=== PATIENT | female | born 1955 | race Caucasian/White ===

== ENCOUNTER 2019-12-15 12:21 | Inpatient (IN) | payer MEDICARE, OTHER ==
[~2019-12-15] VITALS: Ht 165.1 cm; Wt 36.8 kg
[2019-12-15] VITALS (7 sets, daily range): BP systolic 73–89; BP diastolic 46–60
[2019-12-15] MEDS ORDERED: ETOMIDATE 2 MG/ML 10 ML INJ IV ONE (12:31)
[2019-12-15] MEDS ORDERED: VECURONIUM BROMIDE FOR INJ 20 MG VIAL ONE (12:31)
[2019-12-15] MEDS ORDERED: WATER STERILE 10 ML VIAL ONE (12:31)
--- NOTE | 2019-12-15 13:04 | NUR ---
1304 - ETOMIDATE 20MG AND VECURONIUM 10MG IVP 1310 - 6.5 ET TUBE PLACED AT MONA 25 TO THE LIPS
[2019-12-15] MEDS ORDERED: ETOMIDATE 2 MG/ML 10 ML INJ IV STA (13:16)
[2019-12-15] MEDS ORDERED: VECURONIUM BROMIDE FOR INJ 20 MG VIAL IV STA (13:16)
[2019-12-15] MEDS ORDERED: VANCOMYCIN 1GM/NS 250 ML 250 ML IV STA (13:23)
[2019-12-15] MEDS ORDERED: CEFEPIME HCL 1 GM VIAL IV STA (13:23)
[2019-12-15] MEDS ORDERED: AZITHROMYCIN 500MG/NS 250 ML 250 ML IV STA (13:23)
[2019-12-15 13:30] LABS: BASOPHILS # (AUTO) 0.1 (0.0-0.1); BASOPHILS % 0.4 % (0.0-1.0); EOSINOPHILS % 0.2 % (0.0-6.0); HEMATOCRIT 45.5 % (34.2-44.1); LYMPHOCYTES # (AUTO) 0.9 (1.0-3.2); LYMPHOCYTES % 7.1 % (18.0-39.1); MEAN CORPUSCULAR HEMOGLOBIN 22.9 pg (28-32); MEAN CORPUSCULAR HGB CONC 28.6 g/dL (31-35); MEAN CORPUSCULAR VOLUME 80.2 fL (81-99); MONOCYTES # (AUTO) 0.7 (0.2-0.8); MONOCYTES % 5.2 % (4.4-11.3); NEUTROPHILS # (AUTO) 10.8 (2.1-6.9); NEUTROPHILS % 86.6 % (38.7-80.0); PLATELET COUNT 506 x10e3/uL (140-360); RED BLOOD COUNT 5.67 x10e6/uL (3.6-5.1); RED CELL DISTRIBUTION WIDTH 20.3 % (11.7-14.4)
[2019-12-15] MEDS ORDERED: METHYLPREDNISOLONE SOD SUCC 125 MG/2ML VIAL IV ONE (13:30)
[2019-12-15] MEDS ORDERED: ALBUTEROL/IPRATROPIUM 3 ML NEB NEB ONE (13:30)
[2019-12-15] MEDS ORDERED: CEFEPIME 1GM/NS 0.9% 50 ML 50 ML IV STA (13:32)
[2019-12-15 13:35] LABS: INR 1.12
[2019-12-15 13:43] LABS: ALANINE AMINOTRANSFERASE 9 IU/L (0-55); ALBUMIN 2.4 g/dL (3.5-5.0); ALBUMIN/GLOBULIN RATIO 0.5 (0.8-2.0); ALKALINE PHOSPHATASE 59 IU/L (40-150); ANION GAP 13.9 mmol/L (8-16); BLOOD UREA NITROGEN 37 mg/dL (7-26); BUN/CREATININE RATIO 82 (6-25); CALCIUM 8.1 mg/dL (8.4-10.2); CARBON DIOXIDE 26 mmol/L (22-29); CHLORIDE 105 mmol/L (98-107); CREATINE KINASE 12 IU/L (29-168); CREATININE, SERUM 0.45 mg/dL (0.57-1.11); EST GLOMERULAR FILTRATION RATE > 60 ML/MIN (60-); GLUCOSE 68 mg/dL (74-118); POTASSIUM 4.9 mmol/L (3.5-5.1); SODIUM 140 mmol/L (136-145)
[2019-12-15] MEDS ORDERED: LORAZEPAM INJ 2 MG/ML VIAL IV ONE ×2 (13:45→16:00)
--- NOTE | 2019-12-15 13:50 | NUR ---
rapid sequence intubation kit with drug usage form returned to Leslie Rodrigues from pharmacy
[2019-12-15 14:02] LABS: B-TYPE NATRIURETIC PEPTIDE2 47.8 pg/mL (0-100)
[2019-12-15 14:04] LABS: ABG HCO3 26 mmol/L (22-26); ABG PCO2 51 mmHg (35-45); ABG PH 7.31 (7.35-7.45); ABG PO2 47 mmHg (80-105); ABG TCO2 27
--- NOTE | 2019-12-15 14:08 | Diagnostic Imaging Report ---
TECHNIQUE: Frontal view of the chest. INDICATION: ^Y ^sob/intubated ^20191215 ^1350 COMPARISON: None DISCUSSION: Limited evaluation due to portable technique. Lines and hardware: Endotracheal tube is identified with tip projecting 3.2 cm above the antonio. Overlying EKG leads are noted. Heart and mediastinum: Obscured Lungs and pleura: There are basilar bilateral consolidative and patchy airspace opacities with air bronchograms. Small effusions are not excluded. Negative for large pneumothorax. Soft tissues and bones: No acute abnormality. IMPRESSION: 1. Endotracheal tube projects 3.2 cm above the antonio. 2. Bilateral basilar consolidations and ill-defined interstitial opacities are concerning for multifocal pneumonia with possible small effusions. Signed by: Mitch Hwang MD on 12/15/2019 2:04 PM
--- NOTE | 2019-12-15 16:11 | Emergency Department Note ---
History of Present Illnes History of Present Illness Chief Complaint: sent from pcp to be evaluated for fever, resp distress, History of Present Illness This is a 64 year old female. was doing well until 10 days ago then sob , fever. +smoked for many years. 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 History limited by: condition of the patient Title I Instructional Assistant Required: No Onset (how long ago): day(s) (10) Location: n/a Quality: n/a Radiation: Reports non-radiation Severity: moderate Onset quality: gradual Duration (how long): day(s) (10) Timing of current episode: constant Progression: worsening Context: Reports other (has lost weight over the past 2 months) Relieving factors: rest Exacerbating factors: movement Associated symptoms: Reports cough, Reports diaphoresis, Reports fever/chills, Reports loss of appetite, Reports malaise, Reports shortness of breath Treatments prior to arrival: none Past Medical/Family History Physician Review I have reviewed the patient's past medical and family history. Any updates have been documented here. Past Medical History Recent Fever: Yes Clinical Suspicion of Infectio: Yes New/Unexplained Change in Ment: Yes Past Medical History: None Past Surgical History: None Social History Smoking Cessation: Current every day smoker Alcohol Use: None Any Illegal Drug Use: No Other Any Pre-Existing Lines (PICC,: No Review of Systems Review of Systems Constitutional: Reports as per HPI EENTM: Reports no symptoms Cardiovascular: Reports no symptoms Respiratory: Reports as per HPI, Reports dyspnea Gastrointestinal: Reports no symptoms Genitourinary: Reports no symptoms Musculoskeletal: Reports no symptoms Integumentary: Reports no symptoms Neurological: Reports no symptoms Psychological: Reports no symptoms Endocrine: Reports no symptoms Hematological/Lymphatic: Reports no symptoms Review of other systems: All other systems negative Physical Exam Related Data Allergies: Coded Allergies: No Known Allergies (Unverified , 12/15/19) Triage Vital Signs Vital Signs Date Time Temp Pulse Resp B/P (MAP) Pulse Ox O2 Delivery O2 Flow Rate FiO2 12/15/19 12:44 98.5 103 32 105/66 65 Non-Rebreather 15.0 12/15/19 13:15 100 Physical Exam CONSTITUTIONAL Constitutional: Present cachectic, Present distressed (respiratory) HENT HENT: Present normocephalic, Present atraumatic, Present oropharynx normal, Present mucosae dry HENT L/R: Present left TM normal, Present right TM normal, Present left canal normal, Present right canal normal, Present left ext ear normal, Present right ext ear normal EYES Eyes: Reports PERRL, Reports conjunctivae normal, Reports EOM normal, Reports lids normal NECK Neck: Present ROM normal, Present supple PULMONARY Pulmonary: Present respiratory distress CARDIOVASCULAR Cardiovascular: Present regular rhythm, Present heart sounds normal, Present intact distal pulses, Present tachycardia GASTROINTESTINAL Abdominal: Present soft, Present nontender, Present bowel sounds normal GENITOURINARY SKIN Skin: Present warm, Present dry MUSCULOSKELETAL Musculoskeletal: Present ROM normal NEUROLOGICAL Neurological: Present alert, Present oriented x 3 PSYCHOLOGICAL Psychological: Present other (anxious) Results Laboratory Result Diagram: 12/15/19 1205 12/15/19 1205 Laboratory Laboratory Tests Test 12/15/19 13:45 12/15/19 13:12 12/15/19 12:05 Arterial Blood pH 7.31 (7.35-7.45) Arterial Blood Partial Pressure CO2 51 mmHg (35-45) Arterial Blood Partial Pressure O2 47 mmHg (80-105) Arterial Blood HCO3 26 mmol/L (22-26) Arterial Blood Total CO2 27 Arterial Blood Oxygen Saturation 78.0 % (95-98) Arterial Blood Base Excess 0.0 mmol/L (-2 - 3) FiO2 100 % White Blood Count 12.52 x10e3/uL (4.8-10.8) Red Blood Count 5.67 x10e6/uL (3.6-5.1) Hemoglobin 13.0 g/dL (12.0-16.0) Hematocrit 45.5 % (34.2-44.1) Mean Corpuscular Volume 80.2 fL (81-99) Mean Corpuscular Hemoglobin 22.9 pg (28-32) Mean Corpuscular Hemoglobin Concent 28.6 g/dL (31-35) Red Cell Distribution Width 20.3 % (11.7-14.4) Platelet Count 506 x10e3/uL (140-360) Neutrophils (%) (Auto) 86.6 % (38.7-80.0) Lymphocytes (%) (Auto) 7.1 % (18.0-39.1) Monocytes (%) (Auto) 5.2 % (4.4-11.3) Eosinophils (%) (Auto) 0.2 % (0.0-6.0) Basophils (%) (Auto) 0.4 % (0.0-1.0) Neutrophils # (Auto) 10.8 (2.1-6.9) Lymphocytes # (Auto) 0.9 (1.0-3.2) Monocytes # (Auto) 0.7 (0.2-0.8) Eosinophils # (Auto) 0.0 (0.0-0.4) Basophils # (Auto) 0.1 (0.0-0.1) Absolute Immature Granulocyte (auto 0.06 x10e3/uL (0-0.1) Prothrombin Time 15.0 seconds (11.9-14.5) Prothromb Time International Ratio 1.12 D-Dimer Quantitative (PE/DVT) 3.72 ug/mLFEU (0.00-0.45) Sodium Level 140 mmol/L (136-145) Potassium Level 4.9 mmol/L (3.5-5.1) Chloride Level 105 mmol/L (98-107) Carbon Dioxide Level 26 mmol/L (22-29) Anion Gap 13.9 mmol/L (8-16) Blood Urea Nitrogen 37 mg/dL (7-26) Creatinine 0.45 mg/dL (0.57-1.11) Estimat Glomerular Filtration Rate > 60 ML/MIN (60-) BUN/Creatinine Ratio 82 (6-25) Glucose Level 68 mg/dL (74-118) Lactic Acid Level 1.0 mmol/L (0.5-2.0) Calcium Level 8.1 mg/dL (8.4-10.2) Total Bilirubin 0.2 mg/dL (0.2-1.2) Aspartate Amino Transf (AST/SGOT) 23 IU/L (5-34) Alanine Aminotransferase (ALT/SGPT) 9 IU/L (0-55) Alkaline Phosphatase 59 IU/L (40-150) Creatine Kinase 12 IU/L (29-168) Creatine Kinase MB 1.50 ng/mL (0-5.0) Troponin I 0.003 ng/mL (0-0.300) B-Type Natriuretic Peptide 47.8 pg/mL (0-100) Total Protein 7.2 g/dL (6.5-8.1) Albumin 2.4 g/dL (3.5-5.0) Globulin 4.8 g/dL (2.3-3.5) Albumin/Globulin Ratio 0.5 (0.8-2.0) Lab results reviewed: Yes Imaging Imaging results reviewed: Yes Impressions [place] [address] Patient Name: BERNARDA HAILE MR #: [id number] : 1955 Age/Sex: 64/F Req #: [id number] Adm Physician: Ordered by: JIE WERNER Report #: [id number] Location: ER Room/Bed: Procedure: [id number] DX/CHEST SINGLE (PORTABLE) Exam Date: 12/15/19 Exam Time: 1350 REPORT STATUS: Signed TECHNIQUE: Frontal view of the chest. INDICATION: ^Y ^sob/intubated ^20191215 ^1350 COMPARISON: None DISCUSSION: Limited evaluation due to portable technique. Lines and hardware: Endotracheal tube is identified with tip projecting 3.2 cm above the antonio. Overlying EKG leads are noted. Heart and mediastinum: Obscured Lungs and pleura: There are basilar bilateral consolidative and patchy airspace opacities with air bronchograms. Small effusions are not excluded. Negative for large pneumothorax. Soft tissues and bones: No acute abnormality. IMPRESSION: 1. Endotracheal tube projects 3.2 cm above the antonio. 2. Bilateral basilar consolidations and ill-defined interstitial opacities are concerning for multifocal pneumonia with possible small effusions. Signed by: Emerald Hwang MD on 12/15/2019 2:04 PM Dictated By: EMERALD HWANG MD Transcribed By: LIANNA on 12/15/19 140 COPY TO: JIE WERNER~ [facility] [address] [address] Patient Name: BERNARDA HAILE MR #: [id number] : 1955 Age/Sex: 64/F Req #: [id number] Adm Physician: OSIEL WALTON MD Ordered by: JIE WERNER Report #: [id number] Location: ICU Room/Bed: ICU [facility] Procedure: [id number] CT/CT CHEST W Exam Date: 12/15/19 Exam Time: 2204 REPORT STATUS: Signed EXAM: CT Chest WITH contrast (PE Protocol) INDICATION: ^Y ^SOB R/O PE ^20191215 ^2204 COMPARISON: Same day chest radiograph TECHNIQUE: Chest was scanned utilizing a multidetector helical scanner from the lung apex through the level of the diaphragm after administration of IV contrast. Thin section reconstructions were obtained with special concentration on the pulmonary arteries. Coronal and sagittal reformations were obtained. Dose modulation, iterative reconstruction, and/or weight based adjustment of the mA/kV was utilized to reduce the radiation dose to as low as reasonably achievable. Pulmonary embolism protocol was performed. IV CONTRAST: 100 mL of Omnipaque 370 COMPLICATIONS: None RADIATION DOSE: Total DLP: 1038.31 mGy*cm Estimated effective dose: (DLP x 0.014 x size factor) mSv CTDIvol has been reviewed. It is below the limits set by the Radiation Protocol Committee (RPC). FINDINGS: LINES/ TUBES: Endotracheal tube in place with tip terminating in mid trachea. LUNGS AND AIRWAYS: No filling defect is identified within the pulmonary arteries to the segmental level. Significant bilateral lower lobe consolidations with air bronchograms. There are also bilateral upper and middle lobe patchy and tree-in-bud opacities. 2.7 x 2.7 cm cavitary lesion in left lower lobe with air-fluid level. Few additional scattered cavitary lesions. Mild upper lobe predominant emphysematous changes and interlobular septal thickening. Airways are normal. Mild to moderate atherosclerotic calcification of aorta and coronary arteries. PLEURA: The pleural spaces are clear. HEART AND MEDIASTINUM: The thyroid gland is normal. No mediastinal, hilar or axillary lymphadenopathy. The heart is normal in size.. There is no pericardial effusion. . Main pulmonary artery measures 2.3 cm in diameter. . BONES: Incompletely seen left humeral neck intramedullary irregular sclerotic lesion. SOFT TISSUES: Anasarca. IMPRESSION: No pulmonary emboli. Extensive bilateral mid to lower lung field consolidations with air bronchograms, adjacent tree-in-bud opacities, and underlying cavitary lesions with air-fluid levels, representing multifocal pneumonia with superimposed aspiration. There is also mild interstitial edema. Incompletely seen left humeral neck intramedullary irregular sclerotic lesion, which can be further evaluated with nonurgent MRI. Signed by: Dr. Iván Mcdowell MD on 12/15/2019 11:32 PM Dictated By: IVÁN MCDOWELL MD 31 Transcribed By: LIANNA on 12/15/192331 COPY TO: JIE WERNER~ [place] [address] Patient Name: BERNARDA HAILE MR #: [id number] : 1955 Age/Sex: 64/F Req #: [id number] Adm Physician: OSIEL WALTON MD Ordered by: JIE WERNER Report #: [id number] Location: ICU Room/Bed: ICU 190 Procedure: [id number] CT/CT ABDOMEN/PELVIS W Exam Date: 12/15/19 Exam Time: 2204 REPORT STATUS: Signed EXAM: CT Abdomen and Pelvis WITH contrast INDICATION: ^Y ^CACHECTIC R/O MALIGNANCY ^20191215 ^2204 COMPARISON: None. TECHNIQUE: Abdomen and pelvis were scanned utilizing a multidetector helical scanner from the lung base to the pubic symphysis after administration of IV contrast. Coronal and sagittal reformations were obtained. Dose modulation, iterative reconstruction, and/or weight based adjustment of the mA/kV was utilized to reduce the radiation dose to as low as reasonably achievable. Routine protocol was performed. Scan was performed when during portal venous phase. IV CONTRAST: 100 mL of Isovue-370 ORAL CONTRAST: Water COMPLICATIONS: None RADIATION DOSE: Total DLP: 1038.31 mGy*cm Estimated effective dose: (DLP x 0.015 x size factor) mSv CTDIvol has been reviewed. It is below the limits set by the Radiation Protocol Committee (RPC). FINDINGS: LINES and TUBES: Waters catheter. LOWER THORAX: Extensive bilateral lower lung field consolidations with air bronchograms and adjacent patchy/tree-in-bud opacities. 2.7 x 2.7 cm cavitary lesion in the left lower lobe with air-fluid level. Few additional scattered cavitary lesions. Partially seen atherosclerotic calcification of aorta coronary arteries. HEPATOBILIARY: Hypodensity adjacent to falciform ligament, likely focal fat deposition. Tiny right hepatic lobe subcentimeter hypodensities too small to characterize (series 6, image 43). No biliary ductal dilation. GALLBLADDER: No radio-opaque stones or sludge. No wall thickening. SPLEEN: No splenomegaly. PANCREAS: No focal masses or ductal dilatation. ADRENALS: Approximately 1.8 x 1.9 cm right adrenal nodule. KIDNEYS/URETERS: Kidneys enhance symmetrically. No hydronephrosis. Bilateral renal subcentimeter hypodensities which are too small to characterize. Right renal parapelvic and left renal inferior pole cysts. No stones. GI TRACT: Markedly distended rectum. Fecal impaction and wall thickening. Large amount of stool throughout the remainder of the colon. Appendix is not visualized. PELVIC ORGANS/BLADDER: Bladder is decompressed by Waters catheter in place. 1. 8.9 cm enhancing round pelvic lesion (series 6, image 84). LYMPH NODES: No lymphadenopathy. VESSELS: There is moderate atherosclerotic disease in the aorta and major arterial branches. Distended portal and mesenteric veins, likely due to portable hypertension. PERITONEUM / RETROPERITONEUM: No free air. Trace ascites. BONES: Unremarkable. SOFT TISSUES: Anasarca. IMPRESSION: 1. Constipation with significant rectal fecal impaction. 2. 1.9 cm enhancing pelvic lesion is indeterminate and could represent a fibroid, a lymph node, or a peritoneal nodule and can be further evaluated with PET/CT. 3. Trace ascites. X line distended portal and mesenteric veins, posterior cerebral portal hypertension. 4. Please see the dedicated chest CT report for lung findings. Signed by: Dr. Iván Mcdowell MD on 12/15/2019 11:19 PM Dictated By: IVÁN MCDOWELL MD 18 Transcribed By: LIANNA on 12/15/192318 COPY TO: JIE WERNER~ Procedures 12 Lead ECG Interpretation ECG Interpretation : ECG: ECG 1 Title I Instructional Assistant: Interpreted by ED physician Date: Dec 15, 2019 Time: 10:40 Rhythm: sinus tachycardia Rate: tachycardia BPM: 104 QRS axis: normal ST segments normal: Yes T waves normal: Yes Clinical Impression: abnormal ECG (ST) Intubation Time out performed: Yes Sedative: Etomidate Mg given: 20 Paralytic: Vecuronium Mg given: 10 Laryngoscope: Madonna Assist device used: Bougie Endotracheal tube size: 7.5 ET tube uncuffed: Yes Tube secured depth (cm): 22 Tube secured location: lips Tube placement confirmation: visualize tube passing cords, equal breath sounds bilaterally, no breath sounds over epigastrium Patient tolerated procedure: no complications Complications: none Critical Care Time Total Critical Care Time (min): 120 Critical care time exclusive o: treating other patients Critcal care necessary due to: respiratory failure Critcal care time spent by me: develop tx plan w patient/surrogate, discussion w consultants, evaluation patient response to tx, examination of patient, obtaining hx from patient/surrogate, order/perform tx or interventions, order/review laboratory studies, order/review radiographic studies, pulse oximetry, re-evaluation of patient condition, ventilator management (i intubated the pt) Comments dr bush saw pt while in er and took over care of pt Assessment & Plan Medical Decision Making MDM resp failure, pneumonia, rad, dehydration Assessment & Plan Final Impression: (1) Acute respiratory failure (2) Bilateral pneumonia (3) Dehydration (4) Reactive airway disease (5) ARF (acute renal failure) Depart Disposition: ADMITTED Last Vital Signs Date Time Temp Pulse Resp B/P (MAP) Pulse Ox O2 Delivery O2 Flow Rate FiO2 12/15/19 14:12 98.8 103 21 136/96 90 Ventilator 12/15/19 13:16 100 12/15/19 13:15 20.0 Medications in the ED Etomidate 20 mg ONCE STAT IV Last administered on 12/15/19at 13:04; Admin Dose 20 MG; Start 12/15/19 at 13:16; Stop 12/15/19 at 13:20; Status DC Vecuronium [place] 10 mg ONCE STAT IV Last administered on 12/15/19at 13:04; Admin Dose 10 MG; Start 12/15/19 at 13:16; Stop 12/15/19 at 13:21; Status DC Cefepime HCl 1 gm ONCE STAT IV ; Start 12/15/19 at 13:23; Stop 12/15/19 at 13:24; Status UNV Azithromycin 250 ml @ 200 mls/hr NOW STAT IV Last administered on 12/15/19at 13:43; Admin Dose 200 MLS/HR; Start 12/15/19 at 13:23; Stop 12/15/19 at 14:37; Status DC Vancomycin HCl 250 ml @ 166.667 mls/hr NOW STAT IV Last administered on 12/15/19at 15:46; Admin Dose 166.667 MLS/HR; Start 12/15/19 at 13:23; Stop 12/15/19 at 14:52; Status DC Methylprednisolone Sodium Succinate 125 mg ONCE ONCE IV Last administered on 12/15/19at 13:43; Admin Dose 125 MG; Start 12/15/19 at 13:30; Stop 12/15/19 at 13:31; Status DC Albuterol/ Ipratropium 9 ml ONCE ONCE NEB ; Start 12/15/19 at 13:30; Stop 12/15/19 at 13:31; Status DC Cefepime HCl 50 ml @ 100 mls/hr ONCE STAT IV Last administered on 12/15/19at 15:46; Admin Dose 100 MLS/HR; Start 12/15/19 at 13:32; Stop 12/15/19 at 14:01; Status DC Lorazepam 1 mg ONCE ONCE IV Last administered on 12/15/19at 14:09; Admin Dose 1 MG; Start 12/15/19 at 13:45; Stop 12/15/19 at 13:46; Status DC Lorazepam 1 mg ONCE ONCE IV ; Start 12/15/19 at 16:00; Stop 12/15/19 at 16:01; Status DC JIE WERNER Dec 15, 2019 16:11
[2019-12-15] MEDS ORDERED: SODIUM CHLORIDE 0.9% 1000ML 1,000 ML IV SCH (16:30)
[2019-12-15] MEDS ORDERED: ASPIRIN 81 MG CHEW TAB PO ONE (16:30)
[2019-12-15] MEDS ORDERED: ACETAMINOPHEN 325 MG TAB PO PRN (16:30)
[2019-12-15] MEDS ORDERED: ONDANSETRON HCL INJ 2MG/ML 2ML 2 MG/ML VIAL IV PRN (16:30)
[2019-12-15] MEDS ORDERED: VANCOMYCIN HCL 1GM/NS 250 ML BAG IV SCH (16:30)
[2019-12-15] MEDS ORDERED: LACTATED RINGER'S 500 ML INJ ONE (16:30)
[2019-12-15] MEDS ORDERED: HEPARIN SOD/SOD CHLORIDE 1,000 ML IV SCH (17:30)
[2019-12-15] MEDS ORDERED: SODIUM CHLORIDE 0.9% 1000ML 1,000 ML ONE (17:35)
--- NOTE | 2019-12-15 19:16 | Diagnostic Imaging Report ---
EXAMINATION: CHEST SINGLE (PORTABLE) INDICATION: Respiratory failure COMPARISON: Same day chest radiograph. FINDINGS: TUBES and LINES: Endotracheal tube which terminates approximately 3.5 cm above the antonio is unchanged. LUNGS/PLEURA: No interval changes in bibasilar consolidative and patchy airspace opacities with air bronchograms. There is probable small bilateral pleural effusion. No pneumothorax. HEART AND MEDIASTINUM: The cardiomediastinal silhouette is unchanged. BONES AND SOFT TISSUES: No acute osseous lesion. Benign-appearing chondroid lesion in the left humeral head. Soft tissues are unchanged. UPPER ABDOMEN: No free air under the diaphragm. IMPRESSION: 1. No interval changes in bibasilar consolidative and patchy opacities with air bronchograms most compatible with multifocal pneumonia. There is superimposed compressive atelectasis and probable small bilateral pleural effusion. 2. Stable endotracheal tube. Signed by: Sheyla Bowers MD on 12/15/2019 7:13 PM
[2019-12-15 19:47] LABS: CREATINE KINASE MB 1.3 ng/mL (0-5.0)
[2019-12-15 20:34] LABS: ABG PCO2 48 mmHg (35-45); ABG PH 7.35 (7.35-7.45); ABG PO2 44 mmHg (80-105)
[2019-12-15 20:35] LABS: ABG HCO3 26 mmol/L (22-26); ABG TCO2 27
[2019-12-15] MEDS ORDERED: CEFEPIME HCL 2 GM/SOD CHL 0.9% 100 ML BAG IV SCH (22:00)
--- NOTE | 2019-12-15 22:13 | Consultation ---
DATE OF CONSULTATION: Pulmonary Critical Care Consultation CHIEF COMPLAINT: Respiratory failure. HISTORY OF PRESENT ILLNESS: The patient is a 64-year-old woman. She has a history of malaise and weight loss over the past year. She has lost 20 to 25 pounds over the past year, but has not seen a physician. Recently, she had worsening cough and congestion. She went to a local physician and was told she had a fever and sent to the ER. After arriving in the emergency department, she was found to have a saturation in the 60s. She had bilateral infiltrates suggestive of viral pneumonia and she was intubated. She is now on a mechanical ventilator with an assist-control mode of ventilation. PAST SURGICAL HISTORY: Status post cyst removal many years ago. PAST MEDICAL HISTORY: 1. No known cardiac history. 2. No known diabetes. SOCIAL HISTORY: The patient is a smoker. She is not a drinker. [place] in [place], [place]. ALLERGIES: THERE ARE NO KNOWN DRUG ALLERGIES. FAMILY HISTORY: Family history is noncontributory. REVIEW OF SYSTEMS: She has no fevers at home. She is not having any headache. She has no neck pain. She is not having any chest pain. She did have some dyspnea and some cough. She had no abdominal pain. She had no nausea or vomiting. She had no leg edema. She no focal neurological abnormalities. PHYSICAL EXAMINATION: VITAL SIGNS: Blood pressure is 89/54 and the pulse is 98. The respiratory rate is now in the high 20s. She is on a PRVC mode of ventilation. HEENT: Shows no facial swelling or erythema. LYMPHATIC: Shows no submandibular, cervical, or supraclavicular adenopathy. CARDIAC: Reveals a regular rate and rhythm with normal S1 and S2. LUNGS: Auscultation of lungs reveals decreased breath sounds at the bases. There are no crackles. ABDOMEN: Soft and nontender. There is no rebound or guarding. EXTREMITIES: Show atrophy and wasting. LABORATORY DATA: White blood cell count is 12.5, hemoglobin is 13, and the platelet count is 506. The BUN to creatinine ratio is 37 to 0.45 and the other electrolytes are within normal limits. Albumin is 2.4. RADIOGRAPHIC DATA: Chest x-ray shows bilateral airspace opacities concerning for multifocal pneumonia. IMPRESSION: 1. Acute respiratory failure. 2. Possible viral pneumonia and COVID-19 infection. 3. Severe protein-calorie malnutrition. 4. Severe weight loss. 5. Anemia, unspecified. PLAN: 1. The patient will receive intravenous fluids. 2. She will be started on Versed and rocuronium. Her ventilator will be subsequently adjusted. 3. The patient to have CT scan of chest, abdomen, and pelvis. 4. Begin antibiotics and panculture the patient. 5. Bronchodilators as needed. 6. Testing for COVID-19. 7. Case discussed with the . He understands how seriously situation is and that she is on a mechanical ventilator and will be going to the intensive care unit. Talha Gorman MD [facility]/MODL /[id number]
[2019-12-15] MEDS ORDERED: SODIUM CHLORIDE 0.9% 50ML 50 ML ONE (23:16)
[2019-12-15] MEDS ORDERED: IOPAMIDOL 370 MG/ML 200 ML INFUS..BTL INJ ONE (23:16)
--- NOTE | 2019-12-15 23:22 | Diagnostic Imaging Report ---
EXAM: CT Abdomen and Pelvis WITH contrast INDICATION: ^Y ^CACHECTIC R/O MALIGNANCY ^20191215 ^2204 COMPARISON: None. TECHNIQUE: Abdomen and pelvis were scanned utilizing a multidetector helical scanner from the lung base to the pubic symphysis after administration of IV contrast. Coronal and sagittal reformations were obtained. Dose modulation, iterative reconstruction, and/or weight based adjustment of the mA/kV was utilized to reduce the radiation dose to as low as reasonably achievable. Routine protocol was performed. Scan was performed when during portal venous phase. IV CONTRAST: 100 mL of Isovue-370 ORAL CONTRAST: Water COMPLICATIONS: None RADIATION DOSE: Total DLP: 1038.31 mGy*cm Estimated effective dose: (DLP x 0.015 x size factor) mSv CTDIvol has been reviewed. It is below the limits set by the Radiation Protocol Committee (RPC). FINDINGS: LINES and TUBES: Waters catheter. LOWER THORAX: Extensive bilateral lower lung field consolidations with air bronchograms and adjacent patchy/tree-in-bud opacities. 2.7 x 2.7 cm cavitary lesion in the left lower lobe with air-fluid level. Few additional scattered cavitary lesions. Partially seen atherosclerotic calcification of aorta coronary arteries. HEPATOBILIARY: Hypodensity adjacent to falciform ligament, likely focal fat deposition. Tiny right hepatic lobe subcentimeter hypodensities too small to characterize (series 6, image 43). No biliary ductal dilation. GALLBLADDER: No radio-opaque stones or sludge. No wall thickening. SPLEEN: No splenomegaly. PANCREAS: No focal masses or ductal dilatation. ADRENALS: Approximately 1.8 x 1.9 cm right adrenal nodule. KIDNEYS/URETERS: Kidneys enhance symmetrically. No hydronephrosis. Bilateral renal subcentimeter hypodensities which are too small to characterize. Right renal parapelvic and left renal inferior pole cysts. No stones. GI TRACT: Markedly distended rectum. Fecal impaction and wall thickening. Large amount of stool throughout the remainder of the colon. Appendix is not visualized. PELVIC ORGANS/BLADDER: Bladder is decompressed by Waters catheter in place. 1. 8.9 cm enhancing round pelvic lesion (series 6, image 84). LYMPH NODES: No lymphadenopathy. VESSELS: There is moderate atherosclerotic disease in the aorta and major arterial branches. Distended portal and mesenteric veins, likely due to portable hypertension. PERITONEUM / RETROPERITONEUM: No free air. Trace ascites. BONES: Unremarkable. SOFT TISSUES: Anasarca. IMPRESSION: 1. Constipation with significant rectal fecal impaction. 2. 1.9 cm enhancing pelvic lesion is indeterminate and could represent a fibroid, a lymph node, or a peritoneal nodule and can be further evaluated with PET/CT. 3. Trace ascites. X line distended portal and mesenteric veins, posterior cerebral portal hypertension. 4. Please see the dedicated chest CT report for lung findings. Signed by: Dr. Iván Miramontes MD on 12/15/2019 11:19 PM
--- NOTE | 2019-12-15 23:36 | Diagnostic Imaging Report ---
EXAM: CT Chest WITH contrast (PE Protocol) INDICATION: ^Y ^SOB R/O PE ^20191215 ^2204 COMPARISON: Same day chest radiograph TECHNIQUE: Chest was scanned utilizing a multidetector helical scanner from the lung apex through the level of the diaphragm after administration of IV contrast. Thin section reconstructions were obtained with special concentration on the pulmonary arteries. Coronal and sagittal reformations were obtained. Dose modulation, iterative reconstruction, and/or weight based adjustment of the mA/kV was utilized to reduce the radiation dose to as low as reasonably achievable. Pulmonary embolism protocol was performed. IV CONTRAST: 100 mL of Omnipaque 370 COMPLICATIONS: None RADIATION DOSE: Total DLP: 1038.31 mGy*cm Estimated effective dose: (DLP x 0.014 x size factor) mSv CTDIvol has been reviewed. It is below the limits set by the Radiation Protocol Committee (RPC). FINDINGS: LINES/ TUBES: Endotracheal tube in place with tip terminating in mid trachea. LUNGS AND AIRWAYS: No filling defect is identified within the pulmonary arteries to the segmental level. Significant bilateral lower lobe consolidations with air bronchograms. There are also bilateral upper and middle lobe patchy and tree-in-bud opacities. 2.7 x 2.7 cm cavitary lesion in left lower lobe with air-fluid level. Few additional scattered cavitary lesions. Mild upper lobe predominant emphysematous changes and interlobular septal thickening. Airways are normal. Mild to moderate atherosclerotic calcification of aorta and coronary arteries. PLEURA: The pleural spaces are clear. HEART AND MEDIASTINUM: The thyroid gland is normal. No mediastinal, hilar or axillary lymphadenopathy. The heart is normal in size.. There is no pericardial effusion. . Main pulmonary artery measures 2.3 cm in diameter. . BONES: Incompletely seen left humeral neck intramedullary irregular sclerotic lesion. SOFT TISSUES: Anasarca. IMPRESSION: No pulmonary emboli. Extensive bilateral mid to lower lung field consolidations with air bronchograms, adjacent tree-in-bud opacities, and underlying cavitary lesions with air-fluid levels, representing multifocal pneumonia with superimposed aspiration. There is also mild interstitial edema. Incompletely seen left humeral neck intramedullary irregular sclerotic lesion, which can be further evaluated with nonurgent MRI. Signed by: Dr. Iván Miramontes MD on 12/15/2019 11:32 PM
[2019-12-16] VITALS (27 sets, daily range): BP systolic 63–135; BP diastolic 38–62
[2019-12-16] MEDS: MIDAZOLAM HCL 5MG/ML 10ML VIAL 100 ML IV PRN ×4 (00:30→23:30)
--- NOTE | 2019-12-16 01:49 | Diagnostic Imaging Report ---
EXAMINATION: CHEST XRAY LINE PLACEMENT INDICATION: ^PICC line insertion-pt in prone position ^20191216 ^0100 ^Y COMPARISON: Chest CT dated 12/15/2019 FINDINGS: AP view TUBES and LINES: Endotracheal tube with tip 4.1 cm above antonio. Left PICC in place with tip projecting over inferior SVC. LUNGS: Lungs are well inflated. Again seen bilateral mid to lower lung field consolidations with air bronchograms. PLEURA: No visible pneumothorax. HEART AND MEDIASTINUM: Cardiac silhouette is obscured. BONES AND SOFT TISSUES: No acute osseous lesion. Soft tissues are unremarkable. UPPER ABDOMEN: No free air under the diaphragm. IMPRESSION: Status post left PICC placement with tip projecting over inferior SVC. No visible pneumothorax. Redemonstration of bilateral mid to lower lung field consolidations with air bronchograms. Signed by: Dr. Iván Miramontes MD on 12/16/2019 1:46 AM
--- NOTE | 2019-12-16 02:23 | NUR ---
Notified Dr. Joyce Gorman of CT abd/pelvis & chest results and pt update with sats in low 80's and hypotensive MAP 60-65. No new orders at this time.
[2019-12-16 04:31] LABS: BASOPHILS % 0.2 % (0.0-1.0); HEMATOCRIT 42.4 % (34.2-44.1); LYMPHOCYTES # (AUTO) 0.7 (1.0-3.2); LYMPHOCYTES % 5.1 % (18.0-39.1); MEAN CORPUSCULAR HEMOGLOBIN 22.8 pg (28-32); MEAN CORPUSCULAR HGB CONC 28.3 g/dL (31-35); MEAN CORPUSCULAR VOLUME 80.5 fL (81-99); MONOCYTES # (AUTO) 0.3 (0.2-0.8); MONOCYTES % 2.2 % (4.4-11.3); NEUTROPHILS % 92.1 % (38.7-80.0); PLATELET COUNT 424 x10e3/uL (140-360); RED BLOOD COUNT 5.27 x10e6/uL (3.6-5.1); RED CELL DISTRIBUTION WIDTH 19.2 % (11.7-14.4)
[2019-12-16 04:54] LABS: CREATINE KINASE MB 1.4 ng/mL (0-5.0)
[2019-12-16] MEDS ORDERED: NOREPINEPHRINE 8 MG/D5W 250 ML 0 ML ONE (05:00)
[2019-12-16] MEDS ORDERED: LACTATED RINGER'S 1,000 ML ONE (05:03)
[2019-12-16 05:21] LABS: ANION GAP 10.1 mmol/L (8-16); BLOOD UREA NITROGEN 40 mg/dL (7-26); BUN/CREATININE RATIO 91 (6-25); CARBON DIOXIDE 26 mmol/L (22-29); CHLORIDE 107 mmol/L (98-107); CREATININE, SERUM 0.44 mg/dL (0.57-1.11); EST GLOMERULAR FILTRATION RATE > 60 ML/MIN (60-); GLUCOSE 105 mg/dL (74-118); POTASSIUM 5.1 mmol/L (3.5-5.1); SODIUM 138 mmol/L (136-145)
[2019-12-16] MEDS ORDERED: LACTATED RINGER'S 500 ML INJ ONE (05:30)
[2019-12-16] MEDS: NOREPINEPHRINE INJ 4MG/4ML 8 MG in DEXTROSE 5% 250ML 250 ML IV PRN (06:45)
[2019-12-16 06:50] LABS: BILIRUBIN,URINE NEGATIVE (NEGATIVE); CLARITY,URINE CLEAR (CLEAR); COLOR,URINE YELLOW (YELLOW); KETONES,URINE NEGATIVE (NEGATIVE); LEUKOCYTE ESTERASE ,URINE NEGATIVE (NEGATIVE); NITRITE,URINE NEGATIVE (NEGATIVE); PROTEIN,URINE DIPSTICK NEGATIVE (NEGATIVE); URINE UROBILINOGEN 0.2 mg/dL (0.2 - 1)
[2019-12-16] MEDS: IPRATROPIUM BROMIDE 0.02% 2.5 ML NEB NEB SCH ×2 (07:00→13:00)
[2019-12-16] MEDS: ALBUTEROL SULF 0.083% NEB SOLN 3 ML NEB NEB SCH ×3 (07:00→15:00)
[2019-12-16 07:17] LABS: BACTERIA,URINE RARE /HPF; EPITHELIAL CELLS,URINE RARE /LPF; URIC ACID CRYSTALS,URINE MODERATE (FEW); WBC,URINE (MAN) 0-5 /HPF (0-5)
--- NOTE | 2019-12-16 07:49 | Progress Note ---
DATE: Pulmonary Critical Care Progress Note SUBJECTIVE: The patient had low saturations yesterday. Her FiO2 was increased to 100% and PEEP was increased to 10. She was placed in a prone position to maintain sats in the low 90s. The patient received a liter of fluid last night, but had additional hypotension, received another 500 mL this morning. She is now on low-dose Levophed. The patient went for CT scan last night. PHYSICAL EXAMINATION: VITAL SIGNS: The blood pressure is 90/48 and the heart rate is 90. The pulse ox is 89%. She is on the above settings. She is on low-dose Levophed. HEENT: Shows no facial swelling or erythema. There is an oral endotracheal tube in place. The patient has a nasogastric tube. LYMPHATIC: Shows no submandibular, cervical, or supraclavicular adenopathy. CARDIAC: Reveals a regular rate and rhythm. Normal S1 and S2. LUNGS: Auscultation of lungs reveals decreased breath sounds at the bases. There is no wheezing. ABDOMEN: Soft and nontender. There is no rebound or guarding. EXTREMITIES: Shows atrophy and wasting. LABORATORY DATA: NOI-xv-vxeqbvywir ratio is 40 to 0.44. Other electrolytes are within normal limits. White blood cell count is 14.1 and hemoglobin is 12. The platelet count is 424. Blood gas is 7.35, 48, 44, and 26. RADIOGRAPHIC DATA: CT scan of the chest shows extensive bilateral hgs-qt-eutjg lung field consolidations with air bronchograms. There is some tree-in-bud inflammation peripheral to the consolidation. CT scan of the abdomen and pelvis shows severe constipation. There is a possible peritoneal nodule. IMPRESSION: 1. Aspiration pneumonia with septic shock, present on admission. 2. Severe protein-calorie malnutrition. 3. Anemia, unspecified. 4. Elevated UBB-fb-ybdtrtgoaz ratio. 5. Cachexia. PLAN: 1. The patient has received 30 mL/kg of IV fluids. She is now on low-dose pressors. 2. She is receiving broad-spectrum antibiotics and cultures are pending. 3. ID consultation. 4. Continue PRVC mode of ventilation with 100% oxygen and 10 of PEEP. Repeat ABG. 5. Enteral feedings. 6. Attention to decubitus wounds and wound care. 7. Prognosis remains poor. Case discussed with nightshift nursing, dayshift nursing, Respiratory, Internal Medicine, Infectious Disease, and . Greater than 35 minutes in direct critical care time. MD SRIRAM Law[place]/JOSE /[id number]
[2019-12-16 08:18] LABS: ABG HCO3 28 mmol/L (22-26); ABG PCO2 47 mmHg (35-45); ABG PH 7.38 (7.35-7.45); ABG PO2 46 mmHg (80-105); ABG TCO2 29
[2019-12-16] MEDS: ALBUMIN 25% 25GM 100ML 0.25 GM/ML BTL IV SCH ×2 (08:22→14:56)
[2019-12-16] MEDS: FENTANYL 2000MCG/NS 250 250 ML IV PRN ×2 (08:23→22:38)
--- NOTE | 2019-12-16 08:58 | Operative Report ---
DATE OF PROCEDURE: SURGEON: Talha Gorman MD PROCEDURE: Arterial line placement under ultrasound guidance. PREOPERATIVE DIAGNOSIS: Respiratory failure. POSTOPERATIVE DIAGNOSIS: Respiratory failure. MEDICATIONS: The patient was on Versed and fentanyl at the time of the procedure. CONSENT: Consent was obtained from the . DESCRIPTION OF PROCEDURE: The right wrist was placed with the volar aspect up. Area along the radial aspect was prepped with chlorhexidine. Sterile drape, sterile gloves, and mask were used. Ultrasound machine was used to locate the radial artery. The radial artery was cannulated under direct visualization with a 20-gauge needle under direct visualization. A wire was then passed through the needle and a 20-gauge catheter was passed over the wire by the Seldinger technique. There was good blood return. There was a good arterial waveform. COMPLICATIONS: None. ESTIMATED BLOOD LOSS: 5 mL. Talha Gorman MD [facility]/MODL /[id number]
[2019-12-16] MEDS ORDERED: AZITHROMYCIN 500MG/SOD CHL 0.9% 250ML BAG IV SCH (09:00)
[2019-12-16] MEDS ORDERED: DEXAMETHASONE SOD PHOS INJ 4 MG/ML VIAL IV SCH (09:00)
[2019-12-16] MEDS ORDERED: AZITHROMYCIN 500MG/NS 250 ML 250 ML IV SCH (09:00)
[2019-12-16 10:06] LABS: ABG HCO3 25 mmol/L (22-26); ABG PCO2 41 mmHg (35-45); ABG PO2 52 mmHg (80-105); ABG TCO2 27
--- NOTE | 2019-12-16 12:48 | NUR ---
WOUND CARE CONSULT 64 YO FEMALE HX OF resp failure ,pneu PAPITO 8 0N STRICT PUP STATUS AND INTERVENTIONS LABS: WBC- 14.13 HGB- 12 GLUCOSE-105 SKIN ASSESSMENT COMPLETE PATIENT PRESENTS WITH ABRASION LEFT HIP 0.5CM X 0.5CM X0.1 MID LOW BACK RED SLOW BLANCHABLE AREA 5CM X6.5CM WITH DARK ESCHAR TO MID PORTION 0.5CM X1CM RECOMMENDATIONS: NURSING TO CONTINUE TO MONITOR PATIENT AND KEEP SKIN CLEAN AND FREE FROM LOOSE STOOL OR IRRITATING MOISTURE AND CONTINUE TO FOLLOW MODERATE PUP INTERVENTIONS NURSING TO CONTINUE TO GET PATIENT OUT OF BED FOR MEALS AND MUCH TOLERATED NURSING TO CLEAN ABRASION LEFT HIP AND MID LOW BACK RED SLOW BLANCHABLE AREA AND DARK ESCHAR TO MID PORTION WITH NORMAL SALINE DAILY AND APPLY VENELEX OINTMENT TO .. AND COVER WITH ALLEVYN FOAM DRESSING Addendum: 12/16/19 at 1253 by Nelson Adkins RN Amended: Links added.
[2019-12-16] MEDS ORDERED: CEFTRIAXONE SOD 1 GM/NS 50 ML 50 ML IV SCH (14:00)
--- NOTE | 2019-12-16 14:09 | NUR ---
INFECTIOUS DISEASE CONSULT NOTE DR. REBECCA EPPS CC: Acute Respiratory failure HPI: This is a 64 year old female with c/o malaise and weight loss over the past year. The patient reports weight loss of 20-25lbs over the past year, but denies visiting a MD. The patient reports cough and congestion. The patient went to a local doctor who noted the pt was in distress and had a fever, thus sent her to the ED. She was found to have BLL infiltrates and saturation in the 60's. She was intubated and is now on the vent. PMH: largely unknown FAMILY HX: non contributory SURGICAL HX: unknown SOCIAL HX: smoker, lives in [facility] ROS: unable to obtain due to condition ALL 14 POINT ROS NEG UNLESS OTHERWISE NOTED LABS: reviewed RADIOLOGY: reviewed PHYSICAL EXAM GENERAL: in the ICU, critically ill HEENT: normocephalic, atraumatic CV: s1, s2, no s3, s4 CHEST: rhonchi, vent support ABD: soft, non-tender, no distension noted EXT: no joint swelling, no contractures PSYCH: unable to obtain IMPRESSION: Acute Hypoxic Respiratory Multifocal PNA Weight Loss Anemia PLAN: repeat the COVID PCR from the ET tube Will place pt on Zosyn x5 days for aspiration Continue workup repeat labs supportive care Matilde Vázquez MSN, CHILD SUPPORT AGENT, AGANCP-BC
[2019-12-16] MEDS: PIPER-TAZ 3.375 GM 50 ML IV SCH ×2 (14:56→21:48)
[2019-12-16 15:36] LABS: ABG HCO3 27 mmol/L (22-26); ABG PCO2 45 mmHg (35-45); ABG PH 7.39 (7.35-7.45); ABG PO2 46 mmHg (80-105); ABG TCO2 29
--- NOTE | 2019-12-16 16:20 | NUR ---
Nutrition Intervention Note RD Recommendation(s) for Physician: -Recommend modifying formula to Vital AF 1.2 @ goal rate of 35 mL/hr (provides 1008 kcal and 63 g protein) -Water/fluid management per MD -The patient meets criteria for unspecified SEVERE protein-calorie malnutrition. Plan of Care: RD following, monitoring for tolerance and adequacy, tube feed recommendation Nutrition reason for involvement: enteral nutrition RD Assessment (12/16/19) Pt is a 64 year old female admitted with acute respiratory failure and bilateral pneumonia. Pt is currently intubated and tube feeding is planned to be started. Per MD note, pt has lost 20-25 lbs in the past year. Pt currently has a weight of 80 lbs in chart. Therefore, this would be a 20-24% weight loss in 1 year which is considered to be significant weight loss. Pt showed severe signs of generalized muscle and fat depletion per observation. Recommendations provided. RD to manage TF order per Dr. Gorman. Will continue to monitor. Principal Problems/Diagnoses: acute respiratory failure and bilateral pneumonia PMH: malaise and weight loss over the past year, cyst removal many years ago. GI: flat abdomen, no BM recorded Skin: abrasion left hip, mid lower back blanchable area with dark eschar to mid portion (wound care note 12/15) Labs: (12/15) Na 138, K 5.1, BUN 40, Cr 0.44, Glu 105, Ca 8.0 Meds: fentanyl, azithromycin, norepinephrine, heparin, zofran, antibiotic, rocuronium Ht: 65 in Wt: 80 lbs BMI: 13.3 kg/m2 (underweight) IBW: 125 lbs Malnutrition Evaluation (12/16/19) The patient meets criteria for unspecified SEVERE protein-calorie malnutrition. Energy intake: Unable to assess Weight loss: >20% in 1 year (Chronic) Fat loss: Severe (generalized) per observation Muscle loss: Severe (generalized) per observation Supporting Evidence: Fluid accumulation: unable to evaluate Functional Status: unable to evaluate Nutrition Prescription (Diet Order): Vital High Protein @ 35 mL/hr (provides 840 kcal, 74 g protein) Estimated Nutritional Needs: 910-1090 calories/day (25-30 kcal/kg CBW) 55-73 g protein/day (1.5-2 g pro/kg CBW) Diet Adequacy: Not meeting calorie needs, Not meeting protein needs Tolerance: N/A Diet Education Needs Assessment: Diet education is not indicated Nutrition Care Level: high Nutrition Diagnosis: Severe protein-calorie malnutrition related to predicted h/o of inadequate energy intake as evidenced by severe generalized muscle and fat depletion. Goal: Patient will meet 75-100% of estimated needs by follow up Progress: N/A Interventions: - Composition, Rate, Route, Recommended Modifications Monitoring/Evaluation: -Total energy intake, Total protein intake, Formula/Solution, Weight change Signed: Margie Rubio RD, LD
[2019-12-16] MEDS: ROCURONIUM BROMIDE 1,250 MG in SODIUM CHLORIDE 0.9% 250ML 125 ML IV SCH (16:30)
[2019-12-16] MEDS ORDERED: NOREPINEPHRINE 8 MG/D5W 250 ML 250 ML ONE (22:08)
[2019-12-17] VITALS (24 sets, daily range): BP systolic 81–116; BP diastolic 45–56
[2019-12-17] MEDS: NOREPINEPHRINE INJ 4MG/4ML 8 MG in DEXTROSE 5% 250ML 250 ML IV PRN (00:06)
[2019-12-17] MEDS: ALBUMIN 25% 25GM 100ML 0.25 GM/ML BTL IV SCH (00:20)
[2019-12-17] MEDS: ROCURONIUM BROMIDE 1,250 MG in SODIUM CHLORIDE 0.9% 250ML 125 ML IV SCH (04:24)
[2019-12-17] MEDS: PIPER-TAZ 3.375 GM 50 ML IV SCH ×4 (04:25→21:31)
[2019-12-17] MEDS: MIDAZOLAM HCL 5MG/ML 10ML VIAL 100 ML IV PRN ×4 (05:50→22:25)
[2019-12-17 05:57] LABS: BASOPHILS % 0.2 % (0.0-1.0); EOSINOPHILS % 0.4 % (0.0-6.0); HEMATOCRIT 35.2 % (34.2-44.1); HEMOGLOBIN 10.1 g/dL (12.0-16.0); LYMPHOCYTES # (AUTO) 1.7 (1.0-3.2); LYMPHOCYTES % 15.8 % (18.0-39.1); MEAN CORPUSCULAR HGB CONC 28.7 g/dL (31-35); MEAN CORPUSCULAR VOLUME 83.6 fL (81-99); MONOCYTES # (AUTO) 0.5 (0.2-0.8); MONOCYTES % 4.2 % (4.4-11.3); NEUTROPHILS # (AUTO) 8.5 (2.1-6.9); NEUTROPHILS % 78.9 % (38.7-80.0); PLATELET COUNT 344 x10e3/uL (140-360); RED BLOOD COUNT 4.21 x10e6/uL (3.6-5.1); RED CELL DISTRIBUTION WIDTH 19.2 % (11.7-14.4)
[2019-12-17 06:24] LABS: ALANINE AMINOTRANSFERASE 7 IU/L (0-55); ALKALINE PHOSPHATASE 42 IU/L (40-150); ANION GAP 12.1 mmol/L (8-16); BLOOD UREA NITROGEN 34 mg/dL (7-26); BUN/CREATININE RATIO 69 (6-25); CALCIUM 7.8 mg/dL (8.4-10.2); CARBON DIOXIDE 26 mmol/L (22-29); CHLORIDE 108 mmol/L (98-107); CREATININE, SERUM 0.49 mg/dL (0.57-1.11); EST GLOMERULAR FILTRATION RATE > 60 ML/MIN (60-); GLUCOSE 64 mg/dL (74-118); POTASSIUM 5.1 mmol/L (3.5-5.1); SODIUM 141 mmol/L (136-145)
[2019-12-17] MEDS: FENTANYL 2000MCG/NS 250 250 ML IV PRN ×3 (07:11→21:52)
[2019-12-17 07:44] LABS: ABG PCO2 45 mmHg (35-45); ABG PH 7.38 (7.35-7.45); ABG PO2 44 mmHg (80-105)
[2019-12-17 07:45] LABS: ABG HCO3 26 mmol/L (22-26); ABG TCO2 28
[2019-12-17] MEDS: BALSAM PERU/CASTOR OIL 60 GM OINT...G. TP SCH (10:10)
--- NOTE | 2019-12-17 10:38 | Diagnostic Imaging Report ---
EXAMINATION: CHEST SINGLE (PORTABLE) INDICATION: Respiratory failure. COMPARISON: Chest CT 12/15/2019, chest radiograph 12/16/2019. FINDINGS: AP view TUBES and LINES: Endotracheal tube with tip 5.6 cm above antonio. Left PICC in place with tip projecting over inferior SVC. LUNGS: Lungs are well inflated. Again seen bilateral mid to lower lung field consolidations with air bronchograms. PLEURA: No visible pneumothorax. HEART AND MEDIASTINUM: Cardiac silhouette is obscured. There are atherosclerotic calcifications within the aorta. BONES AND SOFT TISSUES: No acute osseous abnormality. Left humeral neck sclerotic lesion is better characterized on prior CT. UPPER ABDOMEN: No free air under the diaphragm. IMPRESSION: Persistent findings compatible with multifocal pneumonia or aspiration. Unchanged lines and tubes. Left humeral neck sclerotic lesion is better characterized on prior CT. This may represent cartilaginous lesion such as enchondroma. Nonemergent follow-up MRI may be considered. Signed by: Dr. Kike Workman MD on 12/17/2019 10:35 AM
[2019-12-17 10:44] LABS: ABG HCO3 23 mmol/L (22-26); ABG PCO2 32 mmHg (35-45); ABG PH 7.46 (7.35-7.45); ABG PO2 73 mmHg (80-105); ABG TCO2 24
--- NOTE | 2019-12-17 11:03 | Progress Note ---
DATE: Pulmonary Critical Care Progress Note. SUBJECTIVE: The patient is still requiring Levophed at 5 mcg. She is on Versed and fentanyl as well as rocuronium. She is being ventilated in the prone position. PHYSICAL EXAMINATION: VITAL SIGNS: Blood pressure is 97/48, pulse is 66 and the temperature is 99.9. Her O2 saturation is 81%. She is on a pressure control with 100% FiO2, 16 of PEEP, and a pressure control of 22. Her respiratory rate is set at 28. HEENT: Shows no facial swelling or erythema. LYMPHATIC: Shows no submandibular, cervical, or supraclavicular adenopathy. CARDIAC: Reveals regular rate and rhythm with normal S1, S2. LUNGS: Auscultation of lungs reveals rhonchorous breath sounds bilaterally. There is no wheezing. ABDOMEN: Soft and nontender. There is no rebound or guarding. EXTREMITIES: Examination of the extremities shows cachexia and wasting in the extremities. SKIN: There is some decubitus breakdown in the lower thoracic spine area that was present on admission. LABORATORY DATA: White blood cell count is 10.7, hemoglobin is 10.1, and the platelet count is 344. BUN to creatinine ratio is 34 to 0.49. Other electrolytes within normal limits and the albumin is 3.0. IMPRESSION: 1. Aspiration pneumonia with septic shock, present on admission. 2. Severe protein calorie malnutrition. 3. Anemia, unspecified. 4. Stage II decubitus breakdown that was present on admission. PLAN: 1. Continue current antibiotics. 2. Adjust patient's ventilator and repeat ABG later today. 3. Continue to ventilate the patient in prone position. 4. The clinical scenario of severe hypoxemia and profound weight loss over the past year, suggests a more indolent process. 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 We will obtain sputum for cytology. 5. The patient is too unstable for bronchoscopy at this time, but if she has some improvement, a bronchoscopy with transbronchial biopsy is indicated. 6. Enteral feedings. 7. Case discussed with nightshift nursing, dayshift nursing, Respiratory, Infectious Disease, and . 8. is aware of the poor prognosis. Greater than 35 minutes in direct critical care time apart from any procedures performed. Talha Gorman MD [facility]/JOSE Cao: 12/17/2019 10:05:10 /[id number]
[2019-12-17] MEDS: IPRATROPIUM BROMIDE 0.02% 2.5 ML NEB NEB SCH ×3 (11:15→22:46)
--- NOTE | 2019-12-17 13:33 | NUR ---
INFECTIOUS DISEASE CONSULT NOTE DR. REBECCA EPPS CC: Acute Respiratory failure HPI: This is a 64 year old female with c/o malaise and weight loss over the past year. The patient reports weight loss of 20-25lbs over the past year, but denies visiting a MD. The patient reports cough and congestion. The patient went to a local doctor who noted the pt was in distress and had a fever, thus sent her to the ED. She was found to have BLL infiltrates and saturation in the 60's. She was intubated and is now on the vent. ROS: unable to obtain due to condition ALL 14 POINT ROS NEG UNLESS OTHERWISE NOTED LABS: reviewed RADIOLOGY: reviewed PHYSICAL EXAM GENERAL: in the ICU, critically ill HEENT: normocephalic, atraumatic CV: s1, s2, no s3, s4 CHEST: rhonchi, vent support ABD: soft, non-tender, no distension noted EXT: no joint swelling, no contractures PSYCH: unable to obtain IMPRESSION: Acute Hypoxic Respiratory Multifocal PNA Weight Loss Anemia PLAN: repeat the COVID PCR from the ET tube (pending) Will place pt on Zosyn x5 days for aspiration Continue workup leukocytosis improved supportive care proned, too unstable for bronch at this time Matilde Vázquez MSN, SNOW MAKER, AGANCP-BC Rebecca Epps MD
[2019-12-17] MEDS: ALBUTEROL SULF 0.083% NEB SOLN 3 ML NEB NEB SCH ×2 (19:07→22:46)
[2019-12-18] VITALS (28 sets, daily range): BP systolic 78–108; BP diastolic 43–77
[2019-12-18] MEDS: NOREPINEPHRINE 8 MG/D5W 250 ML 250 ML IV PRN ×3 (03:36→20:53)
[2019-12-18] MEDS: PIPER-TAZ 3.375 GM 50 ML IV SCH ×2 (03:36→08:08)
[2019-12-18] MEDS: FENTANYL 2000MCG/NS 250 250 ML IV PRN ×2 (04:29→11:22)
[2019-12-18] MEDS: MIDAZOLAM HCL 5MG/ML 10ML VIAL 100 ML IV PRN ×3 (05:00→20:12)
[2019-12-18 05:12] LABS: BASOPHILS # (AUTO) 0.1 (0.0-0.1); BASOPHILS % 0.4 % (0.0-1.0); HEMOGLOBIN 10.8 g/dL (12.0-16.0); LYMPHOCYTES # (AUTO) 0.9 (1.0-3.2); MEAN CORPUSCULAR HEMOGLOBIN 22.9 pg (28-32); MEAN CORPUSCULAR HGB CONC 27.7 g/dL (31-35); MEAN CORPUSCULAR VOLUME 82.6 fL (81-99); MONOCYTES # (AUTO) 0.7 (0.2-0.8); NEUTROPHILS # (AUTO) 16.6 (2.1-6.9); NEUTROPHILS % 89.9 % (38.7-80.0); PLATELET COUNT 372 x10e3/uL (140-360); RED BLOOD COUNT 4.72 x10e6/uL (3.6-5.1); RED CELL DISTRIBUTION WIDTH 19.1 % (11.7-14.4)
[2019-12-18 05:33] LABS: ALANINE AMINOTRANSFERASE 16 IU/L (0-55); ALBUMIN 2.8 g/dL (3.5-5.0); ALBUMIN/GLOBULIN RATIO 0.8 (0.8-2.0); ALKALINE PHOSPHATASE 48 IU/L (40-150); ANION GAP 13.8 mmol/L (8-16); BLOOD UREA NITROGEN 29 mg/dL (7-26); BUN/CREATININE RATIO 56 (6-25); CALCIUM 8.5 mg/dL (8.4-10.2); CARBON DIOXIDE 25 mmol/L (22-29); CHLORIDE 110 mmol/L (98-107); CREATININE, SERUM 0.52 mg/dL (0.57-1.11); EST GLOMERULAR FILTRATION RATE > 60 ML/MIN (60-); POTASSIUM 4.8 mmol/L (3.5-5.1); SODIUM 144 mmol/L (136-145)
[2019-12-18 05:45] LABS: GLUCOSE 53 mg/dL (74-118)
[2019-12-18] MEDS ORDERED: DEXTROSE 50% SYRINGE 50 ML IV STA (05:52)
[2019-12-18] MEDS ORDERED: DEXTROSE 50% SYRINGE 50 ML IV ONE (05:59)
[2019-12-18 06:52] LABS: ABG HCO3 24 mmol/L (22-26); ABG PCO2 46 mmHg (35-45); ABG PH 7.32 (7.35-7.45); ABG PO2 59 mmHg (80-105); ABG TCO2 25
[2019-12-18] MEDS: ALBUTEROL SULF 0.083% NEB SOLN 3 ML NEB NEB SCH ×5 (07:00→22:23)
[2019-12-18] MEDS: IPRATROPIUM BROMIDE 0.02% 2.5 ML NEB NEB SCH ×4 (07:00→22:23)
[2019-12-18] MEDS: EYE LUBRICANT OPTH OINT 3.5GM TUBE OP SCH ×2 (08:08→16:46)
[2019-12-18] MEDS: BALSAM PERU/CASTOR OIL 60 GM OINT...G. TP SCH (08:08)
[2019-12-18] MEDS ORDERED: SODIUM CHLORIDE 0.45% 1,000 ML IV ONE (10:15)
[2019-12-18] MEDS ORDERED: SODIUM CHLORIDE 0.45% 1,000 ML ONE (10:50)
--- NOTE | 2019-12-18 10:58 | Progress Note ---
DATE: Pulmonary Critical Care Progress Note SUBJECTIVE: The patient's came yesterday for visit. Her saturations improved overnight to the low 90s, but now are back in the high 70s and low 80s. She is now in a supine position. She remains on Levophed at 14 mcg. PHYSICAL EXAMINATION: VITAL SIGNS: Blood pressure is 94/52 and saturation is 80%. The respiratory rate is 28 and the pulse is 72. She is currently on a PRVC mode of ventilation with a pressure control. Her PEEP is set at 16 and a pressure control is set at 22. Her respiratory rate is set at 28 and her FiO2 is set at 100%. HEENT: Shows no facial swelling or erythema. She has an oral endotracheal tube. LYMPHATIC: Shows no submandibular, cervical, or supraclavicular adenopathy. CARDIAC: Reveals regular rate and rhythm with normal S1 and S2. LUNGS: Auscultation of lungs reveals decreased breath sounds at the bases. There is no wheezing. ABDOMEN: Soft and nontender. There is no rebound or guarding. She has a PICC line in place as well as an arterial line on the left side. ABDOMEN: Soft and nontender. There is no rebound or guarding. EXTREMITIES: Show no leg edema or calf tenderness. There is no cyanosis or clubbing. SKIN: Shows no rashes. NEUROLOGICAL: Shows the patient to be sedated and paralyzed. LABORATORY DATA: Blood gases; 7.32, 46, 59, and 25. White blood cell count is 18.4, hemoglobin is 10.4, and the platelet count is 372. The BUN to creatinine ratio is 29 to 0.52, and the other electrolytes are within normal limits. The albumin is 2.8. RADIOGRAPHIC DATA: Chest x-ray shows multifocal pneumonia. IMPRESSION: 1. Acute respiratory failure. 2. Chronic obstructive pulmonary disease. 3. Aspiration pneumonia with severe sepsis, present on admission. 4. Severe protein-calorie malnutrition. 5. Sacral and thoracic decubitus breakdown that was present on admission. 6. Anemia, unspecified. PLAN: 1. Continue current antibiotics. 2. Continue current ventilator settings. 3. Enteral feedings. 4. Sputum for cytology. 5. Prognosis is very poor. 6. is aware of prognosis. 7. Case discussed with dredge pipeman nursing, day shift nursing, Respiratory, family, and Infectious Disease. Greater than 35 minutes in direct critical care time. MD SRIRAM [place]/JOSE /[id number]
--- NOTE | 2019-12-18 11:05 | Diagnostic Imaging Report ---
Exam: KUB - 1 view Clinical History: NG tube placement. Comparison: Chest radiograph 12-17-[address] abdomen/pelvis 12-15-2019. Findings: Enteric tube terminates in the expected location of the gastric body. No specific evidence of bowel obstruction. Moderate amount of stool in the colon. Multifocal lower lung consolidative opacities, compatible with pneumonia, better characterized on prior chest radiograph. Impression: Enteric tube terminates in the expected location of the gastric body. Signed by: Dr. Kike Workman MD on 12/18/2019 11:01 AM
--- NOTE | 2019-12-18 11:11 | NUR ---
INFECTIOUS DISEASE CONSULT NOTE DR. REBECCA EPPS CC: Acute Respiratory failure HPI: This is a 64 year old female with c/o malaise and weight loss over the past year. The patient reports weight loss of 20-25lbs over the past year, but denies visiting a MD. The patient reports cough and congestion. The patient went to a local doctor who noted the pt was in distress and had a fever, thus sent her to the ED. She was found to have BLL infiltrates and saturation in the 60's. She was intubated and is now on the vent. ROS: unable to obtain due to condition ALL 14 POINT ROS NEG UNLESS OTHERWISE NOTED LABS: reviewed RADIOLOGY: reviewed PHYSICAL EXAM GENERAL: in the ICU, critically ill HEENT: normocephalic, atraumatic, chronically ill appearing, frail CV: s1, s2, no s3, s4 CHEST: rhonchi, vent support ABD: soft, non-tender, no distension noted EXT: no joint swelling, no contractures PSYCH: unable to obtain IMPRESSION: Acute Hypoxic Respiratory Multifocal PNA Weight Loss Anemia Leukocytosis today 12/17 PLAN: repeat the COVID PCR from the ET tube (pending) leukocytosis worsening changed to Cefepime s/p proning d/w pulmo Matilde Vázquez MSN, SCIENTIFIC INFORMATICS LEADER, AGANCP-BC Rebecca Epps MD
[2019-12-18] MEDS: CEFEPIME 1GM/NS 0.9% 50 ML 50 ML IV SCH ×2 (13:32→22:37)
[2019-12-18] MEDS ORDERED: CEFEPIME HCL 1 GM VIAL IV SCH (14:00)
--- NOTE | 2019-12-18 15:14 | NUR ---
assumed care for patient at about 2:45pm. patient sbp in 80s while on levophed drip at 15mcg, levo was titrated to 18mcg with map of 65. patient oxygen sat is also in the low 80s on 100% fio2 which critical care team is aware.
--- OUTSIDE RECORDS SUMMARY | 2019-12-18 15:58 | XMS REPORT | Continuity of Care Document ---
Author Author [facility] Organization [facility] Address [address] [place] [phone] Phone Unavailable Care Team Providers Care Head Of Merchandise Buying Name Role Phone OSIEL WALTON Attphys Unavailable WALTONOSIEL Cao Admphys Unavailable Problems This patient has no known problems. Allergies, Adverse Reactions, Alerts This patient has no known allergies or adverse reactions. Medications This patient has no known medications. Procedures This patient has no known procedures. Results Test Description Test Time Test Comments Results Result Comments Source ABDOMEN-1VIEW (JAVID) 2019-12-18 10:57:00 [place] [address] Patient Name: BERNARDA HAILE MR #: [id number] : 1955 Age/Sex: 64/F Req #: [id number] [facility] Physician: OSIEL WALTON MD Ordered by: JANETH BRADY MD Report #: [id number] Location: ICU Room/Bed: [place] [address] Procedure: [id number] DX/ABDOMEN-1VIEW ([facility]) Exam Date: 12/18/19 Exam Time: 0845 REPORT STATUS: Signed Exam: KUB - 1 view Clinical History: NG tube placement. Comparison: Chest radiograph 12-17-[address] abdomen/pelvis 12-15-2019. Findings: Enteric tube terminates in the expected location of the gastric body. No specific evidence of bowel obstruction. Moderate amount of stool in the colon. Multifocal lower lung consolidative opacities, compatible with pneumonia, better characterized on prior chest radiograph. Impression: Enteric tube terminates in the expected location of the gastric body. Signed by: Dr. Maria Ines Jeong MD on 12/18/2019 11:01 AM Dictated By: MARIA INES JEONG MD 00 Transcribed By: LIANNA on 12/18/191100 COPY TO: JANETH BRADY MD CHEST SINGLE (PORTABLE) 2019-12-17 10:31:00 [place] [address] Patient Name: BERNARDA HAILE MR #: [id number] : 1955 Age/Sex: 64/F Req #: [id number] Adm Physician: OSIEL WALTON MD Ordered by: JANETH BRADY MD Report #: [id number] Location: ICU Room/Bed: ICU [facility] Procedure: [id number] DX/CHEST SINGLE (PORTABLE) Exam Date: 12/17/19 Exam Time: 934 REPORT STATUS: Signed EXAMINATION: CHEST SINGLE (PORTABLE) INDICATION: Respiratory failure. COMPARISON: Chest CT 12/15/2019, chest radiograph 12/16/2019. FINDINGS: AP view TUBES and LINES: Endotracheal tube with tip 5.6 cm above antonio. Left PICC in place with tip projecting over inferior SVC. LUNGS: Lungs are well inflated. Again seen bilateral mid to lower lung field consolidations with air bronchograms. PLEURA: No visible pneumothorax. HEART AND MEDIASTINUM: Cardiac silhouette is obscured. There are atherosclerotic calcifications within the aorta. BONES AND SOFT TISSUES: No acute osseous abnormality. Left humeral neck sclerotic lesion is better characterized on prior CT. UPPER ABDOMEN: No free air under the diaphragm. IMPRESSION: Persistent findings compatible with multifocal pneumonia or aspiration. Unchanged lines and tubes. Left humeral neck sclerotic lesion is better characterized on prior CT. This may represent cartilaginous lesion such as enchondroma. Nonemergent follow-up MRI may be considered. Signed by: Dr. Maria Ines Jeong MD on 12/17/2019 10:35 AM Dictated By: MARIA INES JEONG MD 103 Transcribed By: LIANNA on 12/17/191034 COPY TO: JANETH BRADY MD CHEST XRAY LINE PLACEMENT 2019-12-16 01:32:00 [place] [address] Patient Name: BERNARDA HAILE MR #: [id number] : 1955 Age/Sex: 64/F Req #: [id number] Adm Physician: OSIEL WALTON MD Ordered by: JANETH BRADY MD Report #: [id number] Location: ICU Room/Bed: ICU [facility] Procedure: [id number] DX/CHEST XRAY LINE PLACEMENT Exam Date: 12/16/19 Exam Time: 99 REPORT STATUS: Signed EXAMINATION: CHEST XRAY LINE PLACEMENT INDICATION: PICC line insertion-pt in prone position 20191216 Y COMPARISON: Chest CT dated 12/15/2019 FINDINGS: AP view TUBES and LINES: Endotracheal tube with tip 4.1 cm above antonio. Left PICC in place with tip projecting over inferior SVC. LUNGS: Lungs are well inflated. Again seen bilateral mid to lower lung field consolidations with air bronchograms. PLEURA: No visible pneumothorax. HEART AND MEDIASTINUM: Cardiac silhouette is obscured. BONES AND SOFT TISSUES: No acute osseous lesion. Soft tissues are unremarkable. UPPER ABDOMEN: No free air under the diaphragm. IMPRESSION: Status post left PICC placement with tip projecting over inferior SVC. No visible pneumothorax. Redemonstration of bilateral mid to lower lung field consolidations with air bronchograms. Signed by: Dr. Iván Mcdowell MD on 12/16/2019 1:46 AM Dictated By: IVÁN MCDOWELL MD 5 Transcribed By: LIANNA on 12/16/19145 COPY TO: JANETH BRADY MD CT CHEST W 2019-12-15 23:19:00 [place] [address] Patient Name: BERNARDA HAILE MR #: [id number] : 1955 Age/Sex: 64/F Req #: [id number] Adm Physician: OSIEL WALTON MD Ordered by: JIE WERNER Report #: [id number] Location: ICU Room/Bed: ICU [facility] Procedure: [id number] CT/CT CHEST W Exam Date: 12/15/19 Exam Time: 2204 REPORT STATUS: Signed EXAM: CT Chest WITH contrast (PE Protocol) INDICATION: Y SOB R/O PE 20191215 COMPARISON: Same day chest radiograph TECHNIQUE: Chest was scanned utilizing a multidetector helical scanner from the lung apex through the level of the diaphragm after administration of IV contrast. Thin section reconstructions were obtained with special concentration on the pulmonary arteries. Coronal and sagittal reformations were obtained. Dose modulation, iterative reconstruction, and/or weight based adjustment of the mA/kV was utilized to reduce the radiation dose to as low as reasonably achievable. Pulmonary embolism protocol was performed. IV CONTRAST: 100 mL of Omnipaque 370 COMPLICATIONS: None RADIATION DOSE: Total DLP: 1038.31 mGy*cm Estimated effective dose: (DLP x 0.014 x size factor) mSv CTDIvol has been reviewed. It is below the limits set by the Radiation Protocol Committee (RPC). FINDINGS: LINES/ TUBES: Endotracheal tube in place with tip terminating in mid trachea. LUNGS AND AIRWAYS: No filling defect is identified within the pulmonary arteries to the segmental level. Significant bilateral lower lobe consolidations with air bronchograms. There are also bilateral upper and middle lobe patchy and tree-in-bud opacities. 2.7 x 2.7 cm cavitary lesion in left lower lobe with air-fluid level. Few additional scattered cavitary lesions. Mild upper lobe predominant emphysematous changes and interlobular septal thickening. Airways are normal. Mild to moderate atherosclerotic calcification of aorta and coronary arteries. PLEURA: The pleural spaces are clear. HEART AND MEDIASTINUM: The thyroid gland is normal. No mediastinal, hilar or axillary lymphadenopathy. The heart is normal in size.. There is no pericardial effusion. . Main pulmonary arter y measures 2.3 cm in diameter. . BONES: Incompletely seen left humeral neck intramedullary irregular sclerotic lesion. SOFT TISSUES: Anasarca. IMPRESSION: No pulmonary emboli. Extensive bilateral mid to lower lung field consolidations with air bronchograms, adjacent tree-in-bud opacities, and underlying cavitary lesions with air-fluid levels, representing multifocal pneumonia with superimposed aspiration. There is also mild interstitial edema. Incompletely seen left humeral neck intramedullary irregular sclerotic lesion, which can be further evaluated with nonurgent MRI. Signed by: Dr. Iván Mcdowell MD on 12/15/2019 11:32 PM Dictated By: IVÁN MCDOWELL MD 31 Transcribed By: LIANNA on 12/15/192331 COPY TO: JIE WERNER CT ABDOMEN/PELVIS W 2019-12-15 23:01:00 [place] [address] Patient Name: BERNARDA HAILE MR #: [id number] : 1955 Age/Sex: 64/F Req #: [id number] Adm Physician: OSIEL WALTON MD Ordered by: JIE WERNER Report #: [id number] Location: ICU Room/Bed: ICU [facility] Procedure: [id number] CT/CT ABDOMEN/PELVIS W Exam Date: 12/15/19 Exam Time: 2204 REPORT STATUS: Signed EXAM: CT Abdomen and Pelvis WITH contrast INDICATION: Y CACHECTIC R/O MALIGNANCY 20191215 COMPARISON: None. TECHNIQUE: Abdomen and pelvis were scanned utilizing a multidetector helical scanner from the lung base to the pubic symphysis af ter administration of IV contrast. Coronal and sagittal reformations were obtained. Dose modulation, iterative reconstruction, and/or weight based adjustment of the mA/kV was utilized to reduce the radiation dose to as low as reasonably achievable. Routine protocol was performed. Scan was performed when during portal venous phase. IV CONTRAST: 100 mL of Isovue-370 ORAL CONTRAST: Water COMPLICATIONS: None RADIATION DOSE: Total DLP: 1038.31 mGy*cm Estimated effective dose: (DLP x 0.015 x size factor) mSv CTDIvol has been reviewed. It is below the limits set by the Radiation Protocol Committee (RPC). FINDINGS: LINES and TUBES: Waters catheter. LOWER THORAX: Extensive bilateral lower lung field consolidations with air bronchograms and adjacent patchy/tree-in-bud opacities. 2.7 x 2.7 cm cavitary lesion in the left lower lobe with air-fluid level. Few additional scattered cavitary lesions. Partially seen athe rosclerotic calcification of aorta coronary arteries. HEPATOBILIARY: Hypodensity adjacent to falciform ligament, likely focal fat deposition. Tiny right hepatic lobe subcentimeter hypodensities too small to characterize (series 6, image 43). No biliary ductal dilation. GALLBLADDER: No radio- opaque stones or sludge. No wall thickening. SPLEEN: No splenomegaly. PANCREAS: No focal masses or ductal dilatation. ADRENALS: Approximately 1.8 x 1.9 cm right adrenal nodule. KIDNEYS/URETERS: Kidneys enhance symmetrically. No hydronephrosis. Bilateral renal subcentimeter hypodensities which are too small to characterize. Right renal parapelvic and left renal inferior pole cysts. No stones. GI TRACT: Markedly distended rectum. Fecal impaction and wall thickening. Large amount of stool throughout the remainder of the colon. Appendix is not visualized. PELVIC ORGANS/BLADDER: Bladder is decompressed by Waters catheter in place. 1. 8.9 cm enhancing round pelvic lesion (series 6, image 84). LYMPH NODES: No lymphadenopathy. VESSELS: There is moderate atherosclerotic disease in the aorta and major arterial branches. Distended portal and mesenteric veins, likely due to portable hypertension. PERITONEUM / RETROPERITONEUM: No free air. Trace ascites. BONES: Unremarkable. SOFT TISSUES: Anasarca. IMPRESSION: 1. Constipation with significant rectal fecal impaction. 2. 1.9 cm enhancing pelvic lesion is indeterminate and could represent a fibroid, a lymph node, or a peritoneal nodule and can be further evaluated with PET/CT. 3. Trace ascites. X line distended portal and mesenteric veins, posterior cerebral portal hypertension. 4. Please see the dedicated chest CT report for lung findings. Signed by: Dr. Iván Mcdowell MD on 12/15/2019 11:19 PM Dictated By: IVÁN MCDOWELL MD 18 Transcribed By: LIANNA on 12/15/192318 COPY TO: JIE WERNER CHEST SINGLE (PORTABLE) 2019-12-15 19:09:00 [place] [address] Patient Name: BERNARDA HAILE MR #: [id number] : 1955 Age/Sex: 64/F Req #: [id number] Adm Physician: OSIEL WALTON MD Ordered by: JANETH BRADY MD Report #: [id number] Location: ICU Room/Bed: ICU [facility]1 Procedure: [id number] DX/CHEST SINGLE (PORTABLE) Exam Date: 12/15/19 Exam Time: 1849 REPORT STATUS: Signed EXAMINATION: CHEST SINGLE (PORTABLE) INDICATION: Respiratory failure COMPARISON: Same day chest radiograph. FINDINGS: TUBES and LINES: Endotracheal tube which terminates approximately 3.5 cm above the antonio is unchanged. LUNGS/PLEURA: No interval changes in bibasilar consolidative and patchy airspace opacities with air bronchograms. There is probable small bilateral pleural effusion. No pneumothorax. HEART AND MEDIASTINUM: The cardiomediastinal silhouette is unchanged. BONES AND SOFT TISSUES: No acute osseous lesion. Benign-appearing chondroid lesion in the left humeral head. Soft tissues are unchanged. UPPER ABDOMEN: No free air under the diaphragm. IMPRESSION: 1. No interval changes in bibasilar consolidative and patchy opacities with air bronchograms most compatible with multifocal pneumonia. There is superimposed compressive atelectasis and probable small bilateral pleural effusion. 2. Stable endotracheal tube. Signed by: Quin Lomax MD on 12/15/2019 7:13 PM Dictated By: QUIN LOMAX MD 12 Transcribed By: LIANNA on 12/15/191912 COPY TO: JANEHT BRADY MD CHEST SINGLE (PORTABLE) 2019-12-15 14:03:00 [place] [address] Patient Name: BERNARDA HAILE MR #: [id number] : 1955 Age/Sex: 64/F Req #: [id number] Adm Physician: Ordered by: JIE WERNER Report #: [id number] Location: ER Room/Bed: Procedure: [id number] DX/CHEST SINGLE (PORTABLE) Exam Date: 12/15/19 Exam Time: 1349 REPORT STATUS: Signed TECHNIQUE: Frontal view of the chest. INDICATION: Y sob/intubated 20191215 COMPARISON: None DISCUSSION: Limited evaluation due to portable technique. Lines and hardware: Endotracheal tube is identified with tip projecting 3.2 cm above the antonio. Overlying EKG leads are noted. Heart and mediastinum: Obscured Lungs and pleura: There are basilar bilateral consolidative and patchy airspace opacities with air bronchograms. Small effusions are not excluded. Negative for large pneumothorax. Soft tissues and bones: No acute abnormality. IMPRESSION: 1. Endotracheal tube projects 3.2 cm above the antonio. 2. Bilateral basilar consolidations and ill- defined interstitial opacities are concerning for multifocal pneumonia with possible small effusions. Signed by: Emerald Hwang MD on 12/15/2019 2:04 PM Dictated By: EMERALD HWANG MD 03 Transcribed By: LIANNA on 12/15/191403 COPY TO: JIE WERNER
[2019-12-18] MEDS: ROCURONIUM BROMIDE 1,250 MG in SODIUM CHLORIDE 0.9% 250ML 125 ML IV SCH (16:30)
[2019-12-18] MEDS ORDERED: DEXTROSE 50% SYRINGE 50 ML IV PRN (23:15)
[2019-12-19] VITALS (29 sets, daily range): BP systolic 86–147; BP diastolic 44–72
[2019-12-19] MEDS: FENTANYL 2000MCG/NS 250 250 ML IV PRN ×4 (01:49→21:30)
[2019-12-19] MEDS: NOREPINEPHRINE 8 MG/D5W 250 ML 250 ML IV PRN ×3 (01:51→11:42)
[2019-12-19] MEDS: ALBUTEROL SULF 0.083% NEB SOLN 3 ML NEB NEB SCH ×6 (02:30→23:30)
[2019-12-19] MEDS: MIDAZOLAM HCL 5MG/ML 10ML VIAL 100 ML IV PRN ×3 (04:09→23:15)
[2019-12-19] MEDS: CEFEPIME 1GM/NS 0.9% 50 ML 50 ML IV SCH ×3 (06:21→23:41)
[2019-12-19 06:51] LABS: BASOPHILS % 0.2 % (0.0-1.0); HEMOGLOBIN 12.4 g/dL (12.0-16.0); LYMPHOCYTES # (AUTO) 0.7 (1.0-3.2); LYMPHOCYTES % 2.8 % (18.0-39.1); MEAN CORPUSCULAR HEMOGLOBIN 22.5 pg (28-32); MEAN CORPUSCULAR VOLUME 83.6 fL (81-99); MONOCYTES # (AUTO) 0.8 (0.2-0.8); MONOCYTES % 3.3 % (4.4-11.3); NEUTROPHILS # (AUTO) 22.9 (2.1-6.9); NEUTROPHILS % 92.8 % (38.7-80.0); PLATELET COUNT 436 x10e3/uL (140-360); RED CELL DISTRIBUTION WIDTH 19.4 % (11.7-14.4)
[2019-12-19] MEDS: IPRATROPIUM BROMIDE 0.02% 2.5 ML NEB NEB SCH ×3 (06:55→20:10)
[2019-12-19 07:00] LABS: ALANINE AMINOTRANSFERASE 22 IU/L (0-55); ALBUMIN 2.6 g/dL (3.5-5.0); ALBUMIN/GLOBULIN RATIO 0.8 (0.8-2.0); ALKALINE PHOSPHATASE 58 IU/L (40-150); BLOOD UREA NITROGEN 29 mg/dL (7-26); BUN/CREATININE RATIO 45 (6-25); CALCIUM 8.5 mg/dL (8.4-10.2); CARBON DIOXIDE 23 mmol/L (22-29); CHLORIDE 107 mmol/L (98-107); CREATININE, SERUM 0.65 mg/dL (0.57-1.11); EST GLOMERULAR FILTRATION RATE > 60 ML/MIN (60-); GLUCOSE 216 mg/dL (74-118); SODIUM 137 mmol/L (136-145)
[2019-12-19] MEDS: EYE LUBRICANT OPTH OINT 3.5GM TUBE OP SCH ×2 (08:41→16:03)
[2019-12-19] MEDS: BALSAM PERU/CASTOR OIL 60 GM OINT...G. TP SCH (08:41)
--- NOTE | 2019-12-19 08:43 | Diagnostic Imaging Report ---
EXAMINATION: CHEST SINGLE (PORTABLE) INDICATION: Respiratory failure COMPARISON: Chest radiograph 12/16/2019 FINDINGS: LINES/TUBES:Interval placement of enteric tube which projects below the diaphragm and terminates out of the [id number]. Endotracheal tube and left PICC line unchanged. EKG leads overlie the chest. LUNGS:The lungs are moderately inflated. Bilateral lower lung consolidative airspace opacities with air bronchograms. PLEURA:No pleural effusion or pneumothorax. MEDIASTINUM:The cardiomediastinal silhouette appears unchanged in size and shape. BONES/SOFT TISSUES:No acute osseous injury. ABDOMEN:No free air under the diaphragm. IMPRESSION: Persistent bilateral lower lung airspace consolidation with air bronchograms. Signed by: David Scott MD on 12/19/2019 8:40 AM
[2019-12-19] MEDS ORDERED: SODIUM BICARBONATE 8.4% SYRING 50 ML ONE (10:06)
--- NOTE | 2019-12-19 11:07 | Progress Note ---
DATE: SUBJECTIVE: The patient is still on mechanical ventilation. She remains on pressure control. T-max is 100.2. PHYSICAL EXAMINATION: VITAL SIGNS: Blood pressure is 114/52 and the saturation is 80%. The respiratory rate is 28. HEENT: Shows no facial swelling or erythema. LYMPHATIC: Shows no submandibular, cervical, or supraclavicular adenopathy. CARDIAC: Reveals regular rate and rhythm with normal S1 and S2. LUNGS: Auscultation of lungs reveals decreased breath sounds at the bases. There is no wheezing. ABDOMEN: Soft and nontender. There is no rebound or guarding. EXTREMITIES: Show wasting and cachexia. LABORATORY DATA: White blood cell count is 24.6, hemoglobin is 12.4, and the platelet count is 436. The BUN to creatinine ratio is 29 to 0.65. The other electrolytes are within normal limits and the albumin is 2.6. RADIOGRAPHIC DATA: Chest x-ray shows bilateral airspace opacities in the lower lobes. IMPRESSION: 1. Acute respiratory failure. 2. Chronic obstructive pulmonary disease. 3. Aspiration pneumonia with severe sepsis, present on admission. 4. Severe protein-calorie malnutrition. 5. Sacral and thoracic decubitus breakdown that was present on admission. 6. Anemia, unspecified. PLAN: 1. Continue current antibiotics. 2. Continue current ventilator settings. 3. Sputum for cytology to evaluate for possible bronchoalveolar carcinoma. 4. Enteral feedings. 5. Prognosis is poor. 6. Case discussed with mushroom picker nursing, day shift nursing, Respiratory, Infectious Disease, and Internal Medicine. Greater than 35 minutes in direct critical care time. Talha Gorman MD [facility] /[id number]
[2019-12-19 11:32] LABS: ANISOCYTOSIS SLIGHT; LYMPHOCYTES % (MANUAL) 4 % (19-48); MONOCYTES % (MANUAL) 3 % (3.4-9.0); NEUTROPHILS % (MANUAL) 93 % (40-74); PLATELET ESTIMATE SLIGHTLY INCREASED; RBC MORPHOLOGY COMMENT NORMAL
[2019-12-19 11:33] LABS: HYPOCHROMASIA SLIGHT; TEAR DROP CELLS FEW
[2019-12-19 11:34] LABS: PLATELET MORPHOLOGY COMMENT RARE EDTA CLUMPING
--- NOTE | 2019-12-19 15:53 | NUR ---
INFECTIOUS DISEASE CONSULT NOTE DR. REBECCA EPPS CC: Acute Respiratory failure HPI: This is a 64 year old female with c/o malaise and weight loss over the past year. The patient reports weight loss of 20-25lbs over the past year, but denies visiting a MD. The patient reports cough and congestion. The patient went to a local doctor who noted the pt was in distress and had a fever, thus sent her to the ED. She was found to have BLL infiltrates and saturation in the 60's. She was intubated and is now on the vent. ROS: unable to obtain due to condition ALL 14 POINT ROS NEG UNLESS OTHERWISE NOTED LABS: reviewed RADIOLOGY: reviewed PHYSICAL EXAM GENERAL: in the ICU, critically ill HEENT: normocephalic, atraumatic, chronically ill appearing, frail CV: s1, s2, no s3, s4 CHEST: rhonchi, vent support ABD: soft, no distension noted EXT: no joint swelling, no contractures PSYCH: unable to obtain IMPRESSION: Acute Hypoxic Respiratory Multifocal PNA Weight Loss Anemia Leukocytosis today 12/17 Metabolic Acidosis PLAN: repeat the COVID PCR from the ET tube NEG leukocytosis worsening changed to Cefepime 77% on AC 30/100%/14Peep overall prognosis is very poor Matilde Vázquez MSN, COIN MACHINE OPERATOR, AGANCP-BC Rebecca Epps MD
[2019-12-19] MEDS: ROCURONIUM BROMIDE 1,250 MG in SODIUM CHLORIDE 0.9% 250ML 125 ML IV SCH ×2 (16:30→21:48)
[2019-12-19 18:09] LABS: ABG HCO3 26 mmol/L (22-26); ABG PCO2 62 mmHg (35-45); ABG PH 7.22 (7.35-7.45); ABG PO2 43 mmHg (80-105); ABG TCO2 27
[2019-12-19 18:11] LABS: ABG PH 7.19 (7.35-7.45)
[2019-12-19 18:12] LABS: ABG HCO3 25 mmol/L (22-26); ABG PCO2 66 mmHg (35-45); ABG PO2 52 mmHg (80-105); ABG TCO2 27
[2019-12-19] MEDS ORDERED: SODIUM CHLORIDE 0.45% 500 ML IV ONE (22:30)
[2019-12-20] VITALS (30 sets, daily range): BP systolic 80–108; BP diastolic 48–58
[2019-12-20] MEDS: NOREPINEPHRINE 8 MG/D5W 250 ML 250 ML IV PRN (00:54)
[2019-12-20] MEDS: ALBUTEROL SULF 0.083% NEB SOLN 3 ML NEB NEB SCH ×6 (02:30→23:10)
[2019-12-20] MEDS: IPRATROPIUM BROMIDE 0.02% 2.5 ML NEB NEB SCH ×4 (02:30→19:30)
[2019-12-20] MEDS: FENTANYL 2000MCG/NS 250 250 ML IV PRN ×3 (05:59→20:27)
[2019-12-20 06:12] LABS: BASOPHILS # (AUTO) 0.1 (0.0-0.1); BASOPHILS % 0.3 % (0.0-1.0); EOSINOPHILS # (AUTO) 0.1 (0.0-0.4); EOSINOPHILS % 0.3 % (0.0-6.0); HEMATOCRIT 40.5 % (34.2-44.1); HEMOGLOBIN 11.1 g/dL (12.0-16.0); LYMPHOCYTES % 4.5 % (18.0-39.1); MEAN CORPUSCULAR HEMOGLOBIN 22.4 pg (28-32); MEAN CORPUSCULAR HGB CONC 27.4 g/dL (31-35); MEAN CORPUSCULAR VOLUME 81.7 fL (81-99); MONOCYTES # (AUTO) 0.6 (0.2-0.8); MONOCYTES % 2.5 % (4.4-11.3); NEUTROPHILS # (AUTO) 19.8 (2.1-6.9); NEUTROPHILS % 91.7 % (38.7-80.0); PLATELET COUNT 294 x10e3/uL (140-360); RED BLOOD COUNT 4.96 x10e6/uL (3.6-5.1); RED CELL DISTRIBUTION WIDTH 18.9 % (11.7-14.4)
[2019-12-20] MEDS: CEFEPIME 1GM/NS 0.9% 50 ML 50 ML IV SCH ×3 (06:36→22:00)
[2019-12-20 06:37] LABS: ALANINE AMINOTRANSFERASE 33 IU/L (0-55); ALBUMIN 2.3 g/dL (3.5-5.0); ALBUMIN/GLOBULIN RATIO 0.8 (0.8-2.0); ALKALINE PHOSPHATASE 61 IU/L (40-150); ANION GAP 10.5 mmol/L (8-16); BLOOD UREA NITROGEN 30 mg/dL (7-26); BUN/CREATININE RATIO 53 (6-25); CALCIUM 8.2 mg/dL (8.4-10.2); CARBON DIOXIDE 25 mmol/L (22-29); CHLORIDE 107 mmol/L (98-107); CREATININE, SERUM 0.57 mg/dL (0.57-1.11); EST GLOMERULAR FILTRATION RATE > 60 ML/MIN (60-); GLUCOSE 130 mg/dL (74-118); POTASSIUM 4.5 mmol/L (3.5-5.1); SODIUM 138 mmol/L (136-145)
[2019-12-20 08:33] LABS: ABG PCO2 42 mmHg (35-45); ABG PH 7.37 (7.35-7.45)
[2019-12-20 08:34] LABS: ABG HCO3 24 mmol/L (22-26); ABG PO2 41 mmHg (80-105); ABG TCO2 25
[2019-12-20] MEDS: EYE LUBRICANT OPTH OINT 3.5GM TUBE OP SCH ×2 (09:07→16:08)
[2019-12-20] MEDS: BALSAM PERU/CASTOR OIL 60 GM OINT...G. TP SCH (09:07)
[2019-12-20] MEDS: MIDAZOLAM HCL 5MG/ML 10ML VIAL 100 ML IV PRN ×3 (09:08→23:34)
[2019-12-20 09:12] LABS: ANISOCYTOSIS SLIGHT; EOSINOPHILS % (MANUAL) 1 % (0-7); HYPOCHROMASIA SLIGHT; LYMPHOCYTES % (MANUAL) 6 % (19-48); MONOCYTES % (MANUAL) 2 % (3.4-9.0); NEUTROPHILS % (MANUAL) 91 % (40-74); PLATELET ESTIMATE ADEQUATE; PLATELET MORPHOLOGY COMMENT NORMAL; RBC MORPHOLOGY COMMENT NORMAL
[2019-12-20] MEDS ORDERED: METHYLPREDNISOLONE SOD SUCC 125 MG/2ML VIAL IV ONE (11:20)
--- NOTE | 2019-12-20 11:50 | NUR ---
Per pt's 's request to RN, port captain escorted lining printer to pt's room for anointing/blessing. Followed up w/ RN. Will follow as able. CHARLES Perla Spiritual Care Department O: [phone]
--- NOTE | 2019-12-20 11:57 | Progress Note ---
DATE: SUBJECTIVE: The patient was placed in the prone position last night. She continues to have oxygen saturations in the low 70s to mid 70s. She continues on Levophed at 15 mcg. She is also on Versed and fentanyl. She remains on mechanical ventilation at a rate of 30 with a PEEP of 14 and a pressure above PEEP of 26. Her FiO2 is set at 100%. PHYSICAL EXAMINATION: VITAL SIGNS: Blood pressure is 98/55 and pulse is 91. Saturation is 77%. She is on the above-mentioned ventilator settings. HEENT: Shows no facial swelling or erythema. LYMPHATIC: Shows no submandibular, cervical, or supraclavicular adenopathy. CARDIAC: Reveals regular rate and rhythm with a normal S1 and S2. LUNGS: Auscultation of lungs reveals rhonchorous breath sounds bilaterally. There is no wheezing. ABDOMEN: Soft and nontender. There is no rebound or guarding. EXTREMITIES: Show no leg edema or calf tenderness. There is no cyanosis or clubbing. SKIN: Shows no rashes. NEUROLOGICAL: Shows no focal abnormalities. LABORATORY DATA: BUN to creatinine ratio is 30 to 0.57. The other electrolytes are within normal limits. The albumin is 2.3 and the total bilirubin is 2.0. White blood cell count is 21.6 and the hemoglobin is 11.1. Platelet count is 294. RADIOGRAPHIC DATA: Chest x-ray shows bilateral infiltrates. IMPRESSION: 1. Acute respiratory failure. 2. Aspiration pneumonia with septic shock, present on admission. 3. Chronic obstructive pulmonary disease. 4. Severe protein-calorie malnutrition. 5. Stage II decubitus ulcers in the thoracic and sacral area. 6. Anemia. 7. Constipation. PLAN: 1. Continue to use prone position for ventilation. 2. Continue current antibiotics. 3. Continue to adjust ventilator settings as needed. 4. Wean Levophed as tolerated. 5. Enteral feedings as tolerated. 6. Prognosis is poor. 7. Palliative Care has been consulted. Greater than 35 minutes in direct critical care time. MD SRIRAM [place]/MOD[facility] /[id number]
--- NOTE | 2019-12-20 13:55 | Progress Note ---
DATE: SUBJECTIVE: Ms. Atkins is intubated and sedated on maximum vent support, not improving with the medical therapy. I called the and informed him, I think he have unrealistic expectation. The patient who is a 64-year-old who has history with weight loss, comes in with bilateral pulmonary infiltrate, currently intubated and sedated, in prone position. OBJECTIVE: VITAL SIGNS: Heart rate is 93, respiratory rate 30, and her temperature 98.1. GENERAL: She is intubated and sedated in prone position. CHEST: Rhonchi. HEART: S1 and S2. ABDOMEN: Soft. EXTREMITIES: There is trace edema. LABORATORY DATA: Her sputum cultures are negative. Blood cultures are negative. Her white count is 21 today, hemoglobin 11, and hematocrit of 40. Her sodium 138, and creatinine 0.57. IMPRESSION: Bilateral pulmonary infiltrate, concern malignancy, concern infection. Cultures are negative. She is currently on cefepime. All cultures are negative. Ideally we would like to do a biopsy, but she is too Critical discussed with Critical Care. She would not withstand any biopsy. She is on vasopressors, though she is on high vent demand. If she improved, we can do a biopsy. My impression today is she is not going to do well. Discussed that with the , has discussion about his having unrealistic expectation, but he is aware that she is extremely ill. MD AMILCAR Serrato/JOSE /[id number]
--- NOTE | 2019-12-20 14:23 | NUR ---
Nutrition Intervention Note RD Recommendation(s) for Physician: -Recommend modifying formula to Vital AF 1.2 @ goal rate of 35 mL/hr (provides 1008 kcal and 63 g protein) -Water/fluid management per MD -The patient meets criteria for unspecified SEVERE protein-calorie malnutrition. Plan of Care: RD following, monitoring for tolerance and adequacy, tube feed recommendation Nutrition reason for involvement: follow up RD Assessment 12/19: Follow up. Pt remains intubated, sedated, and paralyzed. Pt in prone position. Pt currently on Levophed at 11 mcg/min. Tolerating current TF order at goal rate of 30 ml/hr- current RD rec's remain appropriate to change formula to critical care, peptide based formula to best meet pt's needs. Chart reviewed. Will continue to monitor. (12/16/19) Pt is a 64 year old female admitted with acute respiratory failure and bilateral pneumonia. Pt is currently intubated and tube feeding is planned to be started. Per MD note, pt has lost 20-25 lbs in the past year. Pt currently has a weight of 80 lbs in chart. Therefore, this would be a 20-24% weight loss in 1 year which is considered to be significant weight loss. Pt showed severe signs of generalized muscle and fat depletion per observation. Recommendations provided. RD to manage TF order per Dr. Gorman. Will continue to monitor. Principal Problems/Diagnoses: acute respiratory failure and bilateral pneumonia PMH: malaise and weight loss over the past year, cyst removal many years ago. GI: flat abdomen, no BM recorded Skin: abrasion left hip, stage II PU lower back Labs: 12/19: Na 138, K 4.5, BUN 30, Cr 0.57, Gluc 130, POC Gluc 156-199, Ca 8.2 (12/15) Na 138, K 5.1, BUN 40, Cr 0.44, Glu 105, Ca 8.0 Meds: abx, zofran IVF/Drips: Levophed at 11 mcg/min, Rocuronium drip, Versed drip, Fentanyl drip Ht: 65 in Wt: 81.19 lbs (12/19) 80 lbs (12/15) BMI: 13.3 kg/m2 (underweight) IBW: 125 lbs Malnutrition Evaluation (12/16/19) The patient meets criteria for unspecified SEVERE protein-calorie malnutrition. Energy intake: Unable to assess Weight loss: >20% in 1 year (Chronic) Fat loss: Severe (generalized) per observation Muscle loss: Severe (generalized) per observation Supporting Evidence: Fluid accumulation: unable to evaluate Functional Status: unable to evaluate Nutrition Prescription (Diet Order): Osmolite 1.2 @ 30 mL/hr (provides 840 kcal, 74 g protein) Estimated Nutritional Needs: 910-1090 calories/day (25-30 kcal/kg CBW) 55-73 g protein/day (1.5-2 g pro/kg CBW) Diet Adequacy: meeting calorie needs (95% kcal needs), Not meeting protein needs (73% protein needs) Tolerance: tolerating TF at 30 ml/hr Diet Education Needs Assessment: Diet education is not indicated Nutrition Care Level: high Nutrition Diagnosis: Severe protein-calorie malnutrition related to predicted h/o of inadequate energy intake as evidenced by severe generalized muscle and fat depletion. Goal: Patient will meet 75-100% of estimated needs by follow up Progress: progressing Interventions: - Composition, Rate, Route, Recommended Modifications Monitoring/Evaluation: -Total energy intake, Total protein intake, Formula/Solution, Weight change Signed: Rebekah De La Torre RD, LD, [facility]
[2019-12-20] MEDS: ROCURONIUM BROMIDE 1,250 MG in SODIUM CHLORIDE 0.9% 250ML 125 ML IV SCH (16:30)
[2019-12-21] VITALS (26 sets, daily range): BP systolic 82–112; BP diastolic 41–59
[2019-12-21] MEDS: ALBUTEROL SULF 0.083% NEB SOLN 3 ML NEB NEB SCH ×6 (02:30→23:40)
[2019-12-21] MEDS: IPRATROPIUM BROMIDE 0.02% 2.5 ML NEB NEB SCH ×4 (02:30→18:50)
[2019-12-21] MEDS: FENTANYL 2000MCG/NS 250 250 ML IV PRN ×3 (03:45→17:29)
[2019-12-21 05:06] LABS: BASOPHILS % 0.1 % (0.0-1.0); HEMATOCRIT 40.7 % (34.2-44.1); HEMOGLOBIN 11.1 g/dL (12.0-16.0); LYMPHOCYTES # (AUTO) 0.4 (1.0-3.2); LYMPHOCYTES % 1.7 % (18.0-39.1); MEAN CORPUSCULAR HEMOGLOBIN 23.3 pg (28-32); MEAN CORPUSCULAR HGB CONC 27.3 g/dL (31-35); MEAN CORPUSCULAR VOLUME 85.3 fL (81-99); MONOCYTES # (AUTO) 0.4 (0.2-0.8); MONOCYTES % 1.9 % (4.4-11.3); NEUTROPHILS # (AUTO) 19.7 (2.1-6.9); NEUTROPHILS % 95.3 % (38.7-80.0); PLATELET COUNT 234 x10e3/uL (140-360); RED BLOOD COUNT 4.77 x10e6/uL (3.6-5.1)
[2019-12-21 05:22] LABS: ALANINE AMINOTRANSFERASE 68 IU/L (0-55); ALBUMIN 2.2 g/dL (3.5-5.0); ALBUMIN/GLOBULIN RATIO 0.7 (0.8-2.0); ALKALINE PHOSPHATASE 137 IU/L (40-150); BLOOD UREA NITROGEN 37 mg/dL (7-26); BUN/CREATININE RATIO 61 (6-25); CALCIUM 8.3 mg/dL (8.4-10.2); CARBON DIOXIDE 25 mmol/L (22-29); CHLORIDE 109 mmol/L (98-107); CREATININE, SERUM 0.61 mg/dL (0.57-1.11); EST GLOMERULAR FILTRATION RATE > 60 ML/MIN (60-); GLUCOSE 195 mg/dL (74-118); SODIUM 140 mmol/L (136-145)
[2019-12-21] MEDS: MIDAZOLAM HCL 5MG/ML 10ML VIAL 100 ML IV PRN ×3 (06:31→21:57)
[2019-12-21] MEDS: CEFEPIME 1GM/NS 0.9% 50 ML 50 ML IV SCH ×3 (06:31→21:55)
[2019-12-21] MEDS: EYE LUBRICANT OPTH OINT 3.5GM TUBE OP SCH ×2 (08:03→16:46)
[2019-12-21] MEDS: BALSAM PERU/CASTOR OIL 60 GM OINT...G. TP SCH (08:03)
[2019-12-21 08:45] LABS: ABG PCO2 61 mmHg (35-45); ABG PH 7.21 (7.35-7.45)
[2019-12-21 08:46] LABS: ABG HCO3 24 mmol/L (22-26); ABG PO2 42 mmHg (80-105); ABG TCO2 26
--- NOTE | 2019-12-21 09:41 | NUR ---
ASSESSMENT: Spiritual distress Fur Puller called pt's to provide emotional/spiritual support. Pt's struggling with making end of life decisions. Pt's states her family lives in [place] and they "don't realize how frail she is" and "technically, I don't need their permission (to make her DNAR) but they remember her as a strong individual, but she has lost a significant amount of weight." Pt's states, "I'm leaning toward all measures except compressions" but wants her family to agree. Pt's states he will call her family this morning to "get them to see." Pt's states his is Protestant and is relieved that a changeover operator provided anointing of the sick on previous 12/20/19. Pt's states he has "good people" supporting him. Pt's states he and his son visited pt last night. Intervention: Provided unhurried empathic listening. Facilitated discussion about EOL decisions. Provided prayer. Outcome: Pt's expressed appreciation for call and support. Will follow as able. CHARLES Haneylain Spiritual Care Department O: [phone]
--- NOTE | 2019-12-21 15:28 | Diagnostic Imaging Report ---
EXAMINATION: CHEST SINGLE (PORTABLE) INDICATION: Respiratory failure COMPARISON: Chest radiograph of 12/19/2019 FINDINGS: LINES/TUBES:Support lines and tubes unchanged. LUNGS:The lungs are moderately inflated. Slight interval improvement in aeration of both lungs. Persistent bibasilar airspace opacities with air bronchograms. PLEURA:No pleural effusion or pneumothorax. MEDIASTINUM:The cardiomediastinal silhouette appears unchanged in size and shape. Atherosclerotic calcifications of the thoracic aorta. BONES/SOFT TISSUES:No acute osseous injury. ABDOMEN:No free air under the diaphragm. IMPRESSION: Slight interval improvement in bilateral lung aeration with persistent basilar airspace opacities with air bronchograms. Signed by: David Scott MD on 12/21/2019 3:25 PM
--- NOTE | 2019-12-21 16:18 | NUR ---
INFECTIOUS DISEASE CONSULT NOTE DR. REBECCA EPPS CC: Acute Respiratory failure HPI: This is a 64 year old female with c/o malaise and weight loss over the past year. The patient reports weight loss of 20-25lbs over the past year, but denies visiting a MD. The patient reports cough and congestion. The patient went to a local doctor who noted the pt was in distress and had a fever, thus sent her to the ED. She was found to have BLL infiltrates and saturation in the 60's. She was intubated and is now on the vent. ROS: unable to obtain due to condition ALL 14 POINT ROS NEG UNLESS OTHERWISE NOTED LABS: reviewed RADIOLOGY: reviewed PHYSICAL EXAM GENERAL: in the ICU, critically ill HEENT: normocephalic, atraumatic, chronically ill appearing, frail CV: s1, s2, no s3, s4 CHEST: rhonchi, vent support ABD: soft, no distension noted EXT: no joint swelling, no contractures PSYCH: unable to obtain IMPRESSION: Acute Hypoxic Respiratory Multifocal PNA Weight Loss Anemia Leukocytosis today 12/17 Metabolic Acidosis Concern for Malignancy PLAN: leukocytosis slight improvement continues to be critically ill not stable enough for biopsy Continues on Cefepime 77% on AC 30/100%/14Peep overall prognosis is very poor Matilde Vázquez MSN, LIAISON INSPECTION LABORATORY ASSISTANT, AGANCP-BC Rebecca Epps MD
[2019-12-21] MEDS: ROCURONIUM BROMIDE 1,250 MG in SODIUM CHLORIDE 0.9% 250ML 125 ML IV SCH (16:30)
[2019-12-21] MEDS ORDERED: SODIUM CHLORIDE 0.45% 1,000 ML IV ONE (17:30)
--- NOTE | 2019-12-21 18:02 | Progress Note ---
DATE: SUBJECTIVE: The patient remains on Levophed at 12 mcg. She is still on pressure control mode of ventilation, rate of 32 with a PEEP of 14 and pressure above PEEP of 24. Her FiO2 is set at 100%. PHYSICAL EXAMINATION: VITAL SIGNS: The blood pressure is 112/54 and saturation is 82%. She is on the above-mentioned ventilator settings. She has no headache or neck pain. HEENT: Shows no facial swelling or erythema. There is an endotracheal tube in place. LYMPHATIC: Shows no submandibular, cervical, or supraclavicular adenopathy. CARDIAC: Reveals regular rate and rhythm with normal S1 and S2. LUNGS: Auscultation of lungs reveals rhonchorous breath sounds bilaterally. There is no wheezing. ABDOMEN: Soft and nontender. There is no rebound or guarding. EXTREMITIES: Show no leg edema or calf tenderness. There is no cyanosis or clubbing. SKIN: Shows no rashes. NEUROLOGICAL: Shows no focal abnormalities. LABORATORY DATA: The white blood cell count is 20.68 and the hemoglobin is 11.1. The platelet count is 234. The BUN to creatinine ratio is 37 to 0.61. The other electrolytes are within normal limits. Total bilirubin is 2.3 and the albumin is 2.2. Blood gases; 7.21, 61, 42, and 24. RADIOGRAPHIC DATA: Chest x-ray shows slight improvement in bilateral infiltrates. IMPRESSION: 1. Acute respiratory failure. 2. Aspiration pneumonia with septic shock, present on admission. 3. Chronic obstructive pulmonary disease. 4. Severe protein-calorie malnutrition. 5. Stage II decubitus ulcers in the thoracic and sacral area. 6. Anemia, unspecified. 7. Elevated total bilirubin and liver function tests. PLAN: 1. Continue current ventilator settings. 2. Wean Levophed as tolerated. 3. Additional fluids intravenously. 4. Continue enteral feedings. 5. has opted for DNR status, otherwise wants to continue full care. 6. Prognosis remains poor. Greater than 35 minutes in direct critical care time. Talha Gorman MD [facility]/MODL /[id number]
[2019-12-22] VITALS (19 sets, daily range): BP systolic 83–122; BP diastolic 41–59
[2019-12-22] MEDS: NOREPINEPHRINE 8 MG/D5W 250 ML 250 ML IV PRN ×2 (03:40→12:32)
[2019-12-22] MEDS: IPRATROPIUM BROMIDE 0.02% 2.5 ML NEB NEB SCH ×3 (04:05→12:12)
[2019-12-22] MEDS: ALBUTEROL SULF 0.083% NEB SOLN 3 ML NEB NEB SCH ×4 (04:05→15:08)
[2019-12-22 05:16] LABS: BASOPHILS # (AUTO) 0.1 (0.0-0.1); BASOPHILS % 0.3 % (0.0-1.0); EOSINOPHILS % 0.1 % (0.0-6.0); HEMATOCRIT 42.9 % (34.2-44.1); HEMOGLOBIN 11.5 g/dL (12.0-16.0); LYMPHOCYTES # (AUTO) 0.6 (1.0-3.2); LYMPHOCYTES % 1.8 % (18.0-39.1); MEAN CORPUSCULAR HEMOGLOBIN 22.9 pg (28-32); MEAN CORPUSCULAR HGB CONC 26.8 g/dL (31-35); MEAN CORPUSCULAR VOLUME 85.5 fL (81-99); MONOCYTES # (AUTO) 0.7 (0.2-0.8); MONOCYTES % 2.2 % (4.4-11.3); NEUTROPHILS # (AUTO) 30.3 (2.1-6.9); NEUTROPHILS % 94.6 % (38.7-80.0); PLATELET COUNT 285 x10e3/uL (140-360); RED BLOOD COUNT 5.02 x10e6/uL (3.6-5.1)
[2019-12-22 05:36] LABS: ALANINE AMINOTRANSFERASE 100 IU/L (0-55); ALBUMIN 2.2 g/dL (3.5-5.0); ALBUMIN/GLOBULIN RATIO 0.7 (0.8-2.0); ALKALINE PHOSPHATASE 156 IU/L (40-150); ANION GAP 12.9 mmol/L (8-16); BLOOD UREA NITROGEN 48 mg/dL (7-26); BUN/CREATININE RATIO 58 (6-25); CALCIUM 8.1 mg/dL (8.4-10.2); CARBON DIOXIDE 25 mmol/L (22-29); CHLORIDE 106 mmol/L (98-107); CREATININE, SERUM 0.83 mg/dL (0.57-1.11); EST GLOMERULAR FILTRATION RATE > 60 ML/MIN (60-); GLUCOSE 178 mg/dL (74-118); POTASSIUM 4.9 mmol/L (3.5-5.1); SODIUM 139 mmol/L (136-145)
[2019-12-22] MEDS: MIDAZOLAM HCL 5MG/ML 10ML VIAL 100 ML IV PRN ×2 (05:40→14:00)
[2019-12-22] MEDS: CEFEPIME 1GM/NS 0.9% 50 ML 50 ML IV SCH (05:40)
[2019-12-22] MEDS: BALSAM PERU/CASTOR OIL 60 GM OINT...G. TP SCH (09:09)
[2019-12-22] MEDS: EYE LUBRICANT OPTH OINT 3.5GM TUBE OP SCH ×2 (09:09→16:34)
[2019-12-22] MEDS: FENTANYL 2000MCG/NS 250 250 ML IV PRN ×2 (09:22→16:51)
[2019-12-22] MEDS ORDERED: VANCOMYCIN 750MG/NS 150ML IVPB 150 ML IV ONE (10:00)
[2019-12-22] MEDS ORDERED: LACTATED RINGER'S 1,000 ML INJ ONE (10:00)
--- NOTE | 2019-12-22 10:45 | Progress Note ---
DATE: Pulmonary Critical Care Consultation SUBJECTIVE: The patient is still on a mechanical ventilator. She is currently on pressure control. She remains on Levophed at 14 mcg. She received 1 L of fluid yesterday. PHYSICAL EXAMINATION: VITAL SIGNS: The blood pressure is 96/53 and the saturation is 80%. She is currently on a PRVC mode of ventilation at a rate of 30 with a PEEP of 14 and the pressure above PEEP of 24. Her FiO2 is set at 100%. HEENT: No facial swelling or erythema. There is an oral endotracheal tube. LYMPHATIC: No submandibular, cervical, or supraclavicular adenopathy. CARDIAC: Regular rate and rhythm with normal S1, S2. LUNGS: Auscultation of lungs reveals rhonchorous breath sounds bilaterally. There is no wheezing. ABDOMEN: Soft, nontender. There is no rebound or guarding. EXTREMITIES: Atrophy and wasting. LABORATORY DATA: White blood cell count is 32.01 and hemoglobin is 11.5. The platelet count is 285. The BUN to creatinine ratio is 48 to 0.83 and the other electrolytes are within normal limits. The total bilirubin is 1.6. Albumin is 2.2. IMPRESSION: 1. Acute respiratory failure. 2. Aspiration pneumonia with septic shock, present on admission. 3. Severe chronic obstructive pulmonary disease. 4. Severe protein-calorie malnutrition. 5. Stage II decubitus ulcers in the thoracic area and the sacral area. 6. Anemia, unspecified. 7. Elevated liver function tests. PLAN: 1. The patient will be re-cultured today with sputum, blood, and urine. 2. The patient will receive lactated Ringer's x1 L. 3. Continue Levophed and wean as tolerated. 4. Escalate antibiotics to include vancomycin and meropenem. 5. Continue enteral feedings. 6. Evaluation for tracheostomy. 7. The patient has a DNR status, but otherwise wants full support including pressors and antibiotics. Greater than 35 minutes in direct critical care time. Talha Gorman MD [facility]/MOD[facility] /[id number]
[2019-12-22] MEDS ORDERED: METHYLPREDNISOLONE SOD SUCC 125 MG/2ML VIAL ONE (11:06)
[2019-12-22 11:09] LABS: ANISOCYTOSIS SLIGHT; HYPOCHROMASIA SLIGHT; LYMPHOCYTES % (MANUAL) 1 % (19-48); MONOCYTES % (MANUAL) 1 % (3.4-9.0); NEUTROPHILS % (MANUAL) 98 % (40-74); PLATELET ESTIMATE ADEQUATE; RBC MORPHOLOGY COMMENT NORMAL
[2019-12-22 11:10] LABS: PLATELET MORPHOLOGY COMMENT FEW LARGE; POLYCHROMASIA FEW
[2019-12-22] MEDS ORDERED: SODIUM BICARBONATE 8.4% SYRING 50 ML ONE ×2 (11:12→15:58)
[2019-12-22] MEDS ORDERED: METHYLPREDNISOLONE SOD SUCC 125 MG/2ML VIAL IV ONE (11:15)
[2019-12-22] MEDS ORDERED: ENOXAPARIN SOD INJ 40 MG/0.4 ML SYR SC ONE (11:15)
--- NOTE | 2019-12-22 11:39 | Diagnostic Imaging Report ---
TECHNIQUE: Frontal view of the chest. INDICATION: ^resp failure ^[id number] ^[id number] COMPARISON: Prior day. DISCUSSION: Limited evaluation due to portable technique. Lines and hardware: Stable enteric tube, endotracheal tube and left PICC. Heart and mediastinum: Stable and partially obscured Lungs and pleura: Stable exam with bilateral basilar predominant airspace opacities and air bronchograms. Blunting of the costophrenic angles is noted. Negative for large pneumothorax. Soft tissues and bones: No acute abnormality. IMPRESSION: Stable exam. Signed by: Mitch Hwang MD on 12/22/2019 11:36 AM
[2019-12-22 11:44] LABS: ABG PH 7.18 (7.35-7.45)
[2019-12-22 11:45] LABS: ABG HCO3 27 mmol/L (22-26); ABG PCO2 72 mmHg (35-45); ABG PO2 27 mmHg (80-105); ABG TCO2 29
[2019-12-22] MEDS ORDERED: LINEZOLID 600 MG/D5W 300ML 300 ML IV SCH (12:00)
[2019-12-22] MEDS ORDERED: VASOPRESSIN 60 UNIT in DEXTROSE 5% 50ML 57 ML IV PRN (12:30)
--- NOTE | 2019-12-22 13:12 | Progress Note ---
DATE: SUBJECTIVE: Ms. HAILE is intubated and sedated. The family is totally unrealistic. PHYSICAL EXAMINATION: GENERAL: She is extremely cachectic. VITAL SIGNS: Her blood pressure 96/53, O2 site 80%, FiO2 of 100%, and PEEP of 24. HEENT: Not icteric. NECK: Supple. CHEST: Rhonchi. HEART: S1 and S2. ABDOMEN: Soft. LABORATORY DATA: Reviewed . All cultures are negative. Her white count is 32, hemoglobin 11, and hematocrit 42. The patient who is currently on meropenem. Her chest x-ray showed bilateral lung infiltrates, seems to be better persistent. There has been opacity. IMPRESSION: Respiratory failure, cachectic, concerned about malignancy. She is too ill to do a bronchoscopy or biopsy. She has a small trach. She is very tiny and cachectic, very suspicious for malignancy, but we cannot prove it. The patient is failing medical treatment, all cultures are negative so far. White count is getting progressively worse. Liver enzymes high with ALT of 100 and alkaline phosphatase is 156. Discussed with Dr. Gorman. Very difficult situation, we cannot do any procedure, because she is too ill and too critical and cachectic. We will add Zyvox for antibiotic and see if that will do any help, but her prognosis is poor and family unrealistic expectation. MD AMILCAR Serrato/JOSE /[id number]
--- NOTE | 2019-12-22 13:53 | NUR ---
ASSESSMENT: Spiritual distress Pt's hoping for "a miracle." Pt's and son at bedside. Pt's agonizing over EOL decisions. Intervention: Provided unhurried pastoral presence and empathic listening. Facilitated conversation about life/. Provided prayer. Outcome: Pt's and son expressed appreciation for support. Will continue to follow as able. CHARLES MAC [employer] Machine Operator Helper Spiritual Care Department O: [phone]
[2019-12-22] MEDS ORDERED: MEROPENEM 500MG 500 MG in SODIUM CHLORIDE 0.9% 50ML 50 ML IV SCH (14:00)
--- NOTE | 2019-12-22 16:24 | NUR ---
Nutrition Intervention Note RD Recommendation(s) for Physician: -Recommend modifying formula to Vital AF 1.2 @ goal rate of 35 mL/hr (provides 1008 kcal and 63 g protein) -Water/fluid management per MD -The patient meets criteria for unspecified SEVERE protein-calorie malnutrition. Plan of Care: RD following, monitoring for tolerance and adequacy, tube feed recommendation Nutrition reason for involvement: follow up RD Assessment 12/21: Follow up. Chart reviewed. Pt remains intubated and sedated. RN stated pt is tolerating TF @ 40 mL/hr. Current RD rec's remain appropriate to change formula to critical care, peptide based formula to best meet pt's needs. Will continue to monitor. 12/19: Follow up. Pt remains intubated, sedated, and paralyzed. Pt in prone position. Pt currently on Levophed at 11 mcg/min. Tolerating current TF order at goal rate of 30 ml/hr- current RD rec's remain appropriate to change formula to critical care, peptide based formula to best meet pt's needs. Chart reviewed. Will continue to monitor. (12/16/19) Pt is a 64 year old female admitted with acute respiratory failure and bilateral pneumonia. Pt is currently intubated and tube feeding is planned to be started. Per MD note, pt has lost 20-25 lbs in the past year. Pt currently has a weight of 80 lbs in chart. Therefore, this would be a 20-24% weight loss in 1 year which is considered to be significant weight loss. Pt showed severe signs of generalized muscle and fat depletion per observation. Recommendations provided. RD to manage TF order per Dr. Gorman. Will continue to monitor. Principal Problems/Diagnoses: acute respiratory failure and bilateral pneumonia PMH: malaise and weight loss over the past year, cyst removal many years ago. GI: soft, flat abdomen, no BM recorded Skin: abrasion left hip, stage II PU lower back Labs: (12/21) Na 139, K 4.9, BUN 48, Cr 0.83, Glu 178, Ca 8.1, AST 81, ALT 100 12/19: Na 138, K 4.5, BUN 30, Cr 0.57, Gluc 130, POC Gluc 156-199, Ca 8.2 (12/15) Na 138, K 5.1, BUN 40, Cr 0.44, Glu 105, Ca 8.0 Meds: antibiotics, norepinephrine,fentanyl, rocuronium, vasopressin, lovenix, heparin, zofran Ht: 65 in Wt: 81.19 lbs (12/19) 80 lbs (12/15) BMI: 13.3 kg/m2 (underweight) IBW: 125 lbs Malnutrition Evaluation (12/16/19) The patient meets criteria for unspecified SEVERE protein-calorie malnutrition. Energy intake: Unable to assess Weight loss: >20% in 1 year (Chronic) Fat loss: Severe (generalized) per observation Muscle loss: Severe (generalized) per observation Supporting Evidence: Fluid accumulation: unable to evaluate Functional Status: unable to evaluate Nutrition Prescription (Diet Order): Osmolite 1.2 @ 30 mL/hr infusing at 40 per RN (provides 1152 kcal, 53 g protein) Estimated Nutritional Needs: 910-1090 calories/day (25-30 kcal/kg CBW) 55-73 g protein/day (1.5-2 g pro/kg CBW) Diet Adequacy: meeting calorie needs, meeting 96% protein needs at current rate reported by RN Tolerance: tolerating TF Diet Education Needs Assessment: Diet education is not indicated Nutrition Care Level: high Nutrition Diagnosis: Severe protein-calorie malnutrition related to predicted h/o of inadequate energy intake as evidenced by severe generalized muscle/fat depletion and >20% weight loss in 1 year. Goal: Patient will meet 75-100% of estimated needs by follow up Progress: progressing Interventions: - Composition, Rate, Route, Recommended Modifications Monitoring/Evaluation: -Total energy intake, Total protein intake, Formula/Solution, Weight change Signed: Margie Rubio, RD, LD
--- NOTE | 2019-12-22 17:42 | NUR ---
PT BP 84/53 O2 SAT 16% HR 112 AT THIS TIME AND SON MADE AWARE THAT NEXT STEP WOULD BE TO TURN ON VASOPRESSIN IN ADDITION TO LEVPOHED AT THIS TIME, PT STATES HE DOES NOT WISH THIS AT THIS TIME AND IS REQUESTING LEVOPHED BE TURNED OFF AND PATIENT CODE STATUS TO BE CHANGED AT THIS TIME UNDERWRITING CLERKS SUPERVISOR MADE AWARE, CALLED AND MADE AWARE. CODE STATUS CHANGED AT THIS TIME LEVOPHED TO BE TURNED OFF.
--- NOTE | 2019-12-22 18:05 | NUR ---
NO BREATH SOUNDS OR HEART RATE, AT BEDSIDE TO PRONOUNCE PATIENT AT THIS TIME. 1816: MADE AWARE OF PT EXPIRING.
--- NOTE | 2019-12-22 22:54 | NUR ---
PICKED UP BY [facility]. ALL PERSONAL BELONGINGS AND VALUABLE TAKEM BY AT TIME OF
[2019-12-23] MEDS ORDERED: ENOXAPARIN 30 MG/0.3 ML SYR SC SCH (17:00)
== END 2019-12-22 22:54 | disposition expired | DRG 870 ==
LOC: ER 12:40 → ERHOLD 13:43 → ICU 17:16
PROC: 0BH17EZ Insertion of Endotracheal Airway into Trachea, Via Natural or Artificial Opening (ICD-10-PCS; principal; 2019-12-15)
PROC: 5A1955Z Respiratory Ventilation, Greater than 96 Consecutive Hours (ICD-10-PCS; 2019-12-15)
PROC: 03HY32Z Insertion of Monitoring Device into Upper Artery, Percutaneous Approach (ICD-10-PCS; 2019-12-16)
PROC: 4A133B1 Monitoring of Arterial Pressure, Peripheral, Percutaneous Approach (ICD-10-PCS; 2019-12-16)
PROC: 4A133J1 Monitoring of Arterial Pulse, Peripheral, Percutaneous Approach (ICD-10-PCS; 2019-12-16)
PROC: 02HV33Z Insertion of Infusion Device into Superior Vena Cava, Percutaneous Approach (ICD-10-PCS; 2019-12-16)
PROC: B548ZZA Ultrasonography of Superior Vena Cava, Guidance (ICD-10-PCS; 2019-12-16)
PROC: 3E043XZ Introduction of Vasopressor into Central Vein, Percutaneous Approach (ICD-10-PCS; 2019-12-16)
DX: A41.9 Sepsis, unspecified organism (principal); J69.0 Pneumonitis due to inhalation of food and vomit; J96.01 Acute respiratory failure with hypoxia; E43 Unspecified severe protein-calorie malnutrition; R65.21 Severe sepsis with septic shock; Z68.1 Body mass index [BMI] 19.9 or less, adult; N17.9 Acute kidney failure, unspecified; C34.90 Malignant neoplasm of unspecified part of unspecified bronchus or lung; L89.152 Pressure ulcer of sacral region, stage 2; F17.210 Nicotine dependence, cigarettes, uncomplicated; J44.9 Chronic obstructive pulmonary disease, unspecified; D64.9 Anemia, unspecified; K59.00 Constipation, unspecified; Z66 Do not resuscitate; R79.89 Other specified abnormal findings of blood chemistry; Z11.59 Encounter for screening for other viral diseases
CPT/HCPCS: 31500; 36415; 36569; 36600; 51700; 71045; 71260; 74018; 74177; 80048; 80053; 81001; 82550; 82553; 82805; 82948; 83605; 83880; 84145; 84484; 85025; 85379; 85610; 87040; 87070; 87086; 87205; 88112; 88173; 88305; 93005; 93306; 94002; 94003; 99251; 99284; J0456; J0692; J1650; J2020; J2060; J2185; J2543; J2930; J3370; J7030; J7050; J7121; J7799; P9047; Q9967; U0002